=== PATIENT | male | born 1935 | race Caucasian/White ===

== ENCOUNTER 2017-07-01 15:19 | Emergency (ER) | payer MEDICARE, OTHER ==
[~2017-07-01] VITALS: Ht 175.3 cm; Wt 85.7 kg
[~2017-07-01 15:19] MED LIST: CALCIUM-MAG-ZI1 EACH PO; DYAZIDE 37.5-251 EA PO; ECOTRIN81 MG PO; FLOMAX0.4 MG PO; ICAPS AREDS FO1 EACH PO; LIPITOR20 MG PO; LISINOPRIL40 MG PO; METOPROLOL SUC100 MG PO; NITROSTAT0.4 MG SL; SERTRALINE HCL1 GM MC; VITAMIN C1000 M1 PO; VITAMIN D2000 UNI1 PO
--- NOTE | 2017-07-03 10:22 | CONS ---
[facility] [address], [place] [address] Signed DATE OF SERVICE: 07/01/17 HISTORY OF PRESENT ILLNESS: We requested to see Mr. Irizarry in the Emergency Department at the request of the emergency room provider. Mr. 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 This left him with a laceration of the tip of the index finger with a small amount of exposed bone. Orthopedic consultation was requested. PAST MEDICAL HISTORY: Unremarkable. He does not take any blood thinners and is in excellent general health. Procedure: Examination the left index finger revealed a sort of an oblique laceration at the tip of the finger with the loss of a small portion of the nail and some of the underlying nail matrix. However, there appeared to be enough of a viable flap to get primary closure. The wound was gently cleaned and irrigated with digital block of 1% lidocaine. After performing the digital block and cleaned the wound, we were able to get a primary repair, both of the soft tissue at the tip of the finger as well as the nail matrix with a 4-0 nylon. Some Neosporin ointment was applied followed by a nonstick dressing and followed by a tube gauze. We discussed the pain medication, and after discussing the potential issues with GI upset and constipation, he declined the prescription of any pain medication, thought he might do just fine at home with ibuprofen and/or Tylenol. He is discharged home at this time. I have asked him to leave the dressing on for 48 hours, at which point he can remove it and redressit with a couple of Band-Aids. I have asked him not to get it wet for the next 48 hours. After that, he can get it wet, but should not soak it until the wound is healed. He is to get followup in 7 to 10 days for suture removal. Sandeep Link MD WFB/Modl /[id number] Electronically Signed By: SANDEEP LINK MD 07/03/17 1022 PATIENT NAME: VINICIUS IRIZARRY VIDA CONSULTATION DATE OF : 33 PHYSICIAN: SANDEEP LINK MD REPORT #: [id number] REPORT IS CONFIDENTIAL AND NOT TO BE RELEASED WITHOUT AUTHORIZATION
== END 2017-07-01 18:20 | disposition home or self-care (01) ==
LOC: ED 15:19
PROC: 0HQGXZZ Repair Left Hand Skin, External Approach (ICD-10-PCS; principal; 2017-07-01)
DX: S62.631A Displaced fracture of distal phalanx of left index finger, initial encounter for closed fracture (principal); S61.311A Laceration without foreign body of left index finger with damage to nail, initial encounter; I10 Essential (primary) hypertension; I25.2 Old myocardial infarction; E78.00 Pure hypercholesterolemia, unspecified; W29.8XXA Contact with other powered hand tools and household machinery, initial encounter; Z87.891 Personal history of nicotine dependence; Z95.5 Presence of coronary angioplasty implant and graft; Z88.8 Allergy status to other drugs, medicaments and biological substances; Z79.899 Other long term (current) drug therapy; Z79.82 Long term (current) use of aspirin
CPT/HCPCS: 12001; 73140; 90471; 90715; 96365; 99283; J0690

== ENCOUNTER 2021-02-03 08:31 | Day surgery (SDC) | payer MEDICARE, BC ==
[~2021-02-03] VITALS: Ht 175.3 cm; Wt 76.4 kg
--- NOTE | 2021-02-03 10:20 | NUR ---
02/03/21 1020 Liseth Sykes 1012- PT TO PACU IN LL POSITION. EYES CLOSED. RESPONDS TO VERBAL AND TACTILE STIMULI. BREATHING EASY AND UNLABORED. SPO2 >95% ON 6 LO2 VIA NC. PT DENIES PAIN. 1019- PT AWAKENS TO VOICE AND TACTILE STIMULI. VSS. BREATHING EASY AND UNLABORED. O2 TITRATED DOWN TO 2 LO2 VIA NC. VSS.
--- NOTE | 2021-02-03 12:44 | OR ---
[facility] [address], [place] [address] Signed DATE OF OPERATION: 02/03/2021 SURGEON: Wenceslao Sandra MD PREOPERATIVE DIAGNOSES: 1. Anemia with hemoglobin 10.3 and a mean cell volume 88. 2. Guaiac-positive stool x3. 3. Personal history of colonic polyps at age 68 in 2002. 4. Diverticulosis. 5. History of hemorrhoidectomy. 6. Chronic renal insufficiency. 7. Daily aspirin. 8. Daily alcohol. POSTOPERATIVE DIAGNOSES: 1. Blister appearing lesion in posterior oropharynx. 2. Mild patchy gastroduodenitis. 3. Small hiatal hernia (42-39 cm). 4. A 3 mm hairy appendiceal/cecal polyp. 5. Mild to moderate diverticulosis. 6. Moderate internal hemorrhoids. PROCEDURES: 1. EGD with CLOtest and biopsies of the pyloric bulb, antrum and GE junction. 2. Colonoscopy with cold biopsy, application of clip and cautery. ESTIMATED BLOOD LOSS: Minimal. INDICATIONS: Vinicius is an 86-year-old gentleman, asked to see me for an upper and lower endoscopy. I have known Vinicius and his for many years. He was found to be anemic recently with a hemoglobin of 10.3 and a mean cell volume normal at 88. His guaiac stool was positive x3. We know as far back as 2002 at age of 68, he had a tubulovillous adenomatous polyp removed with Dr. Flores. Dr. Mcgraw had removed hyperplastic polyps and noted his diverticulosis in 2006. I removed hyperplastic polyps for him in 2008 and noted the diverticulosis. He had another colonoscopy with myself in 2014 and that was fine. He has no family history of colon cancer or polyps. He maintains good muscle mass. He likes to drink a little alcohol every day. He still uses aspirin on a daily basis. He also had hemorrhoid surgery in the past. In the office, I gave him a Electronically Signed By: WENCESLAO SANDRA MD 02/03/21 1244 PATIENT NAME: VINICIUS EDUARDO RAY OPERATIVE REPORT DATE OF : 33 REPORT #: [id number] PHYSICIAN: WENCESLAO SANDRA MD PCP: NIKI AMANDA MD REPORT IS CONFIDENTIAL AND NOT TO BE RELEASED WITHOUT AUTHORIZATION [facility] [address] [place] [id number] Signed pamphlet on both upper and lower endoscopy. He understands the nature of the two tests along with the risks including, but not limited to gas bloating, crampy abdominal pain, bleeding, perforation requiring surgery, and missed diagnosis. Also because of his advanced age and advanced medical issues, we asked an anesthesia provider to help with increased monitoring and sedation with propofol. He had expressed understanding and wished to proceed. PROCEDURE NOTE: Vinicius was taken into our endoscopy suite and placed in the supine semi-recumbent position. He was given IV sedation with propofol per our nurse stereo plotter operator. A bite block was utilized for the case. The adult gastroscope was introduced and advanced out into the third portion of the duodenum under direct visualization of camera without difficulty. The duodenum was unremarkable. He had very mild patchy inflammation in the pyloric bulb and in the distal half of the stomach. We went ahead and took a biopsy of the pyloric bulb as well as the antrum for pathologic review. An additional biopsy came out of the antrum for CLOtest. Upon retroflexion of scope, I could see just a very small hiatal hernia. It measured out roughly from 42 back to 39 cm. Very minimal disruption to the Z-line. We went and took a biopsy along the edge of the Z-line. No Aldana's mucosa. No distal esophagitis. The middle and upper esophagus were unremarkable. After this, the gastroscope had been removed. Just to the side of his epiglottis in the posterior oropharynx, he has a small 3 or 4 mm blood blister type appearing lesion maybe his Ear, Nose and Throat surgeon could look at in the office. Overall, Vinicius tolerated the upper endoscopy quite well. Vinicius was then rotated into the left lateral decubitus position. He was maintained on IV sedation with the propofol. A digital rectal exam was performed and this was unremarkable. The prostate was not overly enlarged, but it is fairly indurated. He has may be a nodule on the left side of the prostate somewhat inferiorly. After this, the adult colonoscope was introduced and advanced all around into the cecum under direct visualization of camera without difficulty. His prep was good. We could easily see the appendiceal orifice and the ileocecal valve. We took pictures throughout for photodocumentation. He had just a tiny 3 mm polypoid lesion next to the appendiceal orifice. We removed it with cold biopsy forceps. It bled a bit and formed a small hematoma. We went and placed a clip and cauterized it gently and that controlled the bleeding. After this, the scope was then slowly withdrawn. We can see he does have diverticulosis in the left colon. It is mild to moderate in size and number. The rectum was unremarkable. Upon retroflexion of scope, he does have moderate internal hemorrhoids. That may explain his guaiac-positive stool. After this, the gas was suctioned out and colonoscope removed. Vinicius tolerated the procedure quite well. RECOMMENDATIONS: I will see Vinicius back in my office in 7 to 14 days to review his results. He might Electronically Signed By: WENCESLAO SANDRA MD 02/03/21 1244 PATIENT NAME: VINICIUS EDUARDO OPERATIVE REPORT DATE OF : 34 REPORT #: [id number] PHYSICIAN: WENCESLAO SANDRA MD PCP: NIKI AMANDA MD REPORT IS CONFIDENTIAL AND NOT TO BE RELEASED WITHOUT AUTHORIZATION [facility] [address], [place] [address] Signed have his Ear, Nose, and Throat surgeon look at this lesion in the back of his throat. He might follow up the prostate exam with his primary care provider. Wenceslao Sandra MD ALB/MODL /[id number] cc: MD Wenceslao Saleh MD Copies: NIKI AMANDA DMD, ANDREW L MD ~ Electronically Signed By: WENCESLAO SANDRA MD 02/03/21 1244 PATIENT NAME: VINICIUS EDUARDO OPERATIVE REPORT DATE OF : 34 REPORT #: [id number] PHYSICIAN: WENCESLAO SANDRA MD PCP: NIKI AMANDA MD REPORT IS CONFIDENTIAL AND NOT TO BE RELEASED WITHOUT AUTHORIZATION
--- NOTE | 2021-02-05 13:52 | PATH ---
[facility] [address] [place], [place] [address] Signed SPECIMEN(S): A DUODENAL BULB BIOPSY SPECIMEN(S): B ANTRUM/PYLORUS BIOPSY SPECIMEN(S): C GE JUNCTION SPECIMEN(S): D CECUM POLYP SPECIMEN SOURCE: A. DUODENAL BULB BIOPSY B. ANTRUM/PYLORUS BIOPSY C. GE JUNCTION D. CECUM POLYP CLINICAL HISTORY: Esophagogastroduodenoscopy, colonoscopy. Guaiac positive stool, history of polyps and diverticulosis. Postop: Cecal polyp, internal hemorrhoids, diverticulosis, mild gastritis, small hiatal hernia. MICROSCOPIC DESCRIPTION: Histologic sections of all submitted blocks are examined by light microscopy. These findings, together with the gross examination, support the pathologic diagnosis. FINAL PATHOLOGIC DIAGNOSIS: A. Duodenum, bulb, biopsy: - Duodenal mucosa with mild peptic injury. B. Stomach, antrum/pylorus, biopsy: - Gastric antral mucosa with no significant pathologic changes. - Negative for Helicobacter pylori with HE stains. C. Gastroesophageal junction, biopsy: - Squamoglandular mucosa with reactive epithelial changes; negative for intestinal metaplasia. D. Cecum, polypectomy: - Colonic mucosa with no significant pathologic changes. BRP:cml:C2NR GROSS DESCRIPTION: Four specimens are received in four containers labeled with "CM." A. The specimen, labeled "CM," and designated on the requisition "duodenum bulb biopsy," is received in formalin and consists of one fragment of pink-orozco tissue (0.4 x 0.2 x 0.2 cm). The specimen is submitted entirely in cassette (A1). B. The specimen, labeled "CM," and designated on the requisition "antrum/pylorus biopsy," is received in formalin and consists of one fragment PATIENT NAME: VINICIUS EDUARDO PATHOLOGY DATE OF : 33 REPORT #: [id number] PHYSICIAN: ILEANA PATHOLOGY PCP: NIKI AMANDA MD REPORT IS CONFIDENTIAL AND NOT TO BE RELEASED WITHOUT AUTHORIZATION [facility] [address] [place], [place] [address] Signed of pink-orozco tissue (0.3 x 0.3 x 0.2 cm). The specimen is submitted entirely in cassette (B1). C. The specimen, labeled "CM," and designated on the requisition "GE junction biopsy," is received in formalin and consists of one fragment of pink-orozco tissue (0.3 x 0.2 x 0.2 cm). The specimen is submitted entirely in cassette (C1). D. The specimen, labeled "CM," and designated on the requisition "cecum polypectomy," is received in formalin and consists of one fragment of pink-orozco tissue (0.4 x 0.3 x 0.2 cm). The specimen is submitted entirely in cassette (D1). AC (under the direct supervision of a pathologist) The Gross Description was prepared using a voice recognition system. The report was reviewed for accuracy; however, sound-alike word errors, addition and/or deletions may occur. If there is any question about this report, please contact Client Services. PERFORMING LABORATORY: The technical component was performed by [employer], [address] [place] [address] (Shopping Centre Manager: Ana Laura Frost MD; CLIA# [id number]). Professional interpretation was performed by [employer], [facility], [address] [address] (CLIA# [id number]). Diagnostician: Kennedy Burton MD Pathologist Electronically Signed 02/05/2021 Copies: ~ PATIENT NAME: VINICIUS EDUARDO RAY PATHOLOGY DATE OF : 34 REPORT #: [id number] PHYSICIAN: ILEANA TAVAREZ PCP: NIKI AMANDA MD REPORT IS CONFIDENTIAL AND NOT TO BE RELEASED WITHOUT AUTHORIZATION
== END 2021-02-03 10:55 | disposition home or self-care (01) ==
LOC: OPS 08:31 → DS 08:35 → OPS 10:55
PROVIDERS: ATTEND Colon & Rectal Surgery
PROC: 0DB68ZZ Excision of Stomach, Via Natural or Artificial Opening Endoscopic (ICD-10-PCS; principal; 2021-02-03 08:15)
PROC: 0DBE8ZZ Excision of Large Intestine, Via Natural or Artificial Opening Endoscopic (ICD-10-PCS; 2021-02-03 08:15)
DX: D64.9 Anemia, unspecified (principal); R19.5 Other fecal abnormalities; K57.30 Diverticulosis of large intestine without perforation or abscess without bleeding; K29.90 Gastroduodenitis, unspecified, without bleeding; K44.9 Diaphragmatic hernia without obstruction or gangrene; K64.8 Other hemorrhoids; K63.5 Polyp of colon; K31.89 Other diseases of stomach and duodenum; I12.9 Hypertensive chronic kidney disease with stage 1 through stage 4 chronic kidney disease, or unspecified chronic kidney disease; N18.9 Chronic kidney disease, unspecified; I25.2 Old myocardial infarction; I25.10 Atherosclerotic heart disease of native coronary artery without angina pectoris; M47.9 Spondylosis, unspecified; E78.00 Pure hypercholesterolemia, unspecified; E55.9 Vitamin D deficiency, unspecified; N40.1 Benign prostatic hyperplasia with lower urinary tract symptoms; F10.20 Alcohol dependence, uncomplicated; G47.33 Obstructive sleep apnea (adult) (pediatric); F17.220 Nicotine dependence, chewing tobacco, uncomplicated; Z86.010 Personal history of colon polyps; Z79.82 Long term (current) use of aspirin; Z87.19 Personal history of other diseases of the digestive system; Z95.5 Presence of coronary angioplasty implant and graft; Z85.828 Personal history of other malignant neoplasm of skin; Z88.8 Allergy status to other drugs, medicaments and biological substances; Z98.890 Other specified postprocedural states
CPT/HCPCS: 86677; J2704; J7121

== ENCOUNTER 2021-05-02 16:07 | Emergency (ER) | payer MEDICARE, BC ==
[~2021-05-02] VITALS: Ht 175.3 cm; Wt 76.2 kg
--- OUTSIDE RECORDS SUMMARY | 2021-05-02 16:10 | XMS ---
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 Vivian has no Care Guidelines for this patient. Love VISIT COUNT (12 MO.) 1 [facility] [address] [facility] TOTAL 2 NOTE: Visits indicate total known visits. ED/UCC VISIT TRACKING (12 MO.) 05/02/2021 16:[address] [facility] [place] TYPE: Emergency COMPLAINT: - TEMP POST OP 04/30/2021 18:35 [facility] TYPE: Emergency DIAGNOSES: 15433. Kidney issue 19953. Minor contusion of unspecified kidney, initial encounter INPATIENT VISIT TRACKING (12 MO.) No inpatient visits to display in this time frame [email or web address]
== END 2021-05-02 19:33 | disposition home or self-care (01) ==
LOC: ED 16:07
DX: J98.11 Atelectasis (principal); R50.9 Fever, unspecified; D64.9 Anemia, unspecified; I25.2 Old myocardial infarction; I10 Essential (primary) hypertension; E78.00 Pure hypercholesterolemia, unspecified; Z87.891 Personal history of nicotine dependence; Z88.8 Allergy status to other drugs, medicaments and biological substances; Z79.899 Other long term (current) drug therapy; Z79.82 Long term (current) use of aspirin
CPT/HCPCS: 71045; 80053; 81001; 85025; 99284-25

== ENCOUNTER 2021-08-29 11:10 | Emergency (ER) | payer MEDICARE, BC ==
[~2021-08-29] VITALS: Ht 175.3 cm; Wt 71.5 kg
--- OUTSIDE RECORDS SUMMARY | 2021-08-29 11:12 | XMS ---
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 E.DMitchell VISIT COUNT (12 MO.) 1 [facility] [place] 1 [facility] 2 [facility] TOTAL 4 NOTE: Visits indicate total known visits. ED/UCC VISIT TRACKING (12 MO.) 08/29/2021 11:10 [facility] TYPE: Emergency COMPLAINT: - BACK PAIN 07/15/2021 09:39 [facility] [place] TYPE: Emergency DIAGNOSES: 32551. GLF R HIP PAIN 29930. Fracture of unspecified part of neck of right femur, initial encounter for closed fracture 05/02/2021 16:08 [facility] [place] TYPE: Emergency COMPLAINT: - FEVER DIAGNOSES: - Anemia, unspecified - Old myocardial infarction - Allergy status to other drugs, medicaments and biological substances - Atelectasis - Other fpc (current) drug therapy - Essential (primary) hypertension - Personal history of nicotine dependence - rodent exterminator (current) use of aspirin - Pure hypercholesterolemia, unspecified - Fever, unspecified 04/30/2021 18:35 [facility] TYPE: Emergency DIAGNOSES: 16700. Kidney issue . Minor contusion of unspecified kidney, initial encounter INPATIENT VISIT TRACKING (12 MO.) [facility]21 09[facility] [place] [facility] DIAGNOSES: . Fracture of unspecified part of neck of right femur, initial encounter for closed fracture 06/22/2021 10:43 [facility] TYPE: Urology DIAGNOSES: . Chronic kidney disease, unspecified [email or web address]
[2021-08-29] MEDS ORDERED: TAMSULOSIN HCL0.4 MG PO (11:21)
[2021-08-29] MEDS ORDERED: AMLODIPINE BESY10 MG PO (11:22)
[2021-08-29] MEDS ORDERED: SERTRALINE HCL50 MG PO (11:22)
[2021-08-29] MEDS ORDERED: OXYCODONE HCL5 MG PO (11:22)
[2021-08-29] MEDS ORDERED: TIZANIDINE HCL4 M1 (11:23)
[2021-08-29] MEDS ORDERED: TIZANIDINE HCL4 M1 PO (11:23)
[2021-08-29] MEDS ORDERED: ULTRAM50 MG PO (11:24)
[2021-08-29] MEDS ORDERED: LIDODERM1 EACH TOP (12:40)
== END 2021-08-29 13:48 | disposition home or self-care (01) ==
LOC: ED 11:10
DX: S33.5XXA Sprain of ligaments of lumbar spine, initial encounter (principal); I25.2 Old myocardial infarction; I10 Essential (primary) hypertension; E78.00 Pure hypercholesterolemia, unspecified; W19.XXXA Unspecified fall, initial encounter; Z87.891 Personal history of nicotine dependence; Z88.8 Allergy status to other drugs, medicaments and biological substances; Z79.82 Long term (current) use of aspirin; Z79.899 Other long term (current) drug therapy
CPT/HCPCS: 72100; 99283-25; A9270

== ENCOUNTER 2021-09-30 06:48 | Inpatient (IN) | payer MEDICARE, BC ==
[~2021-09-30] VITALS: Ht 175.3 cm; Wt 71.2 kg
[~2021-09-30 06:48] MED LIST changes: +AMLODIPINE BESY10 MG PO; +LIDODERM1 EACH TOP; +OXYCODONE HCL5 MG PO; +SERTRALINE HCL50 MG PO; +TAMSULOSIN HCL0.4 MG PO; +TIZANIDINE HCL4 M1; +TIZANIDINE HCL4 M1 PO; +ULTRAM50 MG PO
--- OUTSIDE RECORDS SUMMARY | 2021-09-30 06:50 | XMS ---
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 07/15/2021-Current PHONE: [phone] Vivian has no Care Guidelines for this patient. E.DMitchell VISIT COUNT (12 MO.) 1 [facility] [place] 1 [facility] 3 [facility] TOTAL 5 NOTE: Visits indicate total known visits. 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 GLF R HIP PAIN 67936. Fracture of unspecified part of neck of right femur, initial encounter for closed fracture 05/02/2021 16:08 [facility] [place] TYPE: Emergency COMPLAINT: - FEVER DIAGNOSES: - Anemia, unspecified - Old myocardial infarction - Allergy status to other drugs, medicaments and biological substances - Atelectasis - Other rodent exterminator (current) drug therapy - Essential (primary) hypertension - Personal history of nicotine dependence - correction (current) use of aspirin - Pure hypercholesterolemia, unspecified - Fever, unspecified 04/30/2021 18:35 [facility] TYPE: Emergency DIAGNOSES: 67721. Kidney issue 79608. Minor contusion of unspecified kidney, initial encounter INPATIENT VISIT TRACKING (12 MO.) 07/15/2021 09:39 [facility] [place] TYPE: General Medicine DIAGNOSES: 21773. Fracture of unspecified part of neck of right femur, initial encounter for closed fracture 06/22/2021 10:43 [facility] TYPE: Urology DIAGNOSES: 73140. Chronic kidney disease, unspecified [email or web address]
[2021-09-30] MEDS ORDERED: LISINOPRIL40 MG PO (07:52)
[2021-09-30] MEDS ORDERED: FENTANYL1 EAC4 TD (08:23)
[2021-09-30] MEDS ORDERED: TRIAMTERENE-HC1 EAC1 PO (08:24)
[2021-09-30] MEDS ORDERED: GABAPENTIN300 MG PO (08:25)
--- NOTE | 2021-09-30 13:31 | NUR ---
REPORT RECEIVED FROM PHILL TSANG. AWAITING PTS ARRIVAL TO MED/SURG
--- NOTE | 2021-09-30 14:32 | NUR ---
PT ARRIVED FROM ER. PT TRANSFERED TO BED WITH YESI ORTIZ AND 3 PERSON ASSIST. PT ALERT, ORIENTED TO ALL BUT MONTH AND YEAR STATING IT IS "AUGUST" AND "" FOR THE YEAR. PT IS ABLE TO STATES HE IS IN THE HOSPITAL "BECAUSE I FELL DOWN" AND IS ABLE TO IDENTIFY HIS BY NAME. PT DENIES NAUSEA. PT DENEIS PAIN BUT WINCES AND CRIES OUT WHEN LEFT ARM IS MOVED. STATES PT HAS BEEN "HOLLERING AT ME...WAFFELS! WAFFELS!" WHILE AT HOME. PTS STATES PT HAS HAD TROUBEL WITH INCONTANCE AT HOME WELL RECENT FALLS. IV FLUIDS STARTED. PT REPOSIIONTED IN BED. WARM BLANKETS PROVIDED. ADDITIONAL IV STARTED WITH BLOOD DRAW FOR TYPE AND CROSS, PER PROTOCOL. BRISK BLOOD RETURN NOTED WITH IV START, IV SALINE LOCKED AT THIS TIME. PT RESTING IN BED WITH AT BEDSIDE. DINNER ORDER PLACED. CALL LIGHT WITHIN REACH. BED RAILS UP. AT BEDSIDE.
--- NOTE | 2021-09-30 14:59 | NUR ---
THIS RN TO ROOM TO CHECK ON PT. PT RESTING WITH EYES CLOSED. RESPRATIONS EVEN AND UNALABORED. ASSESSMENT COMPLETED. PT AWAKENS TO LIGHT TOUCH, DOZES OFF BETWEEN CARES. PT REMAINS ORIENTED TO ALL BUT DATE AND MONTH, MAKES OCCATIONAL OUT OF PLACE STATMENTS SUCH "SO WE JUST DON'T GET ALONG WITH BEER TONIGHT." PT CONTINUES TO DENY PAIN, CONTINUES TO FLINCH OR CRY OUT WHEN LEFT ARM IS TOUCHED. ONLY CONTROLED MOVEMENT NOTED IN LEFT ARM. GRIB STRENGTHS EQUAL BILATERALLY. PT IS ABLE TO LIFT LEGS OF THE BED WELL BED KNEES AND USE LEGS TO LIFT HIPS OFF THE BED. MULTIPLE RECENT FALLS. NO FENTANYL PATCHES NOTED OVER PTS BODY. PTS STATES "I TOOK THE OTHER PATCH OFF." +3 PITTING EDEMA NOTED TO BILATERAL LOWER EXTREMITIES. LEFT ARM GENERALIZED EDEMA NOTED WELL. DR FOWLER CONSUTLED REGARDING LEFT ARM, NO NEW ORDERS AT THIS TIME. LEFT ARM SUPPORTED ON A PILLOW. SMALL ABRASION NOTED TO MID CLAVICULAR STERNAL LINE, REPORTS THIS IS FROM A FALL, SKIN OTHERWISE INTACT AT THIS TIME. PT DOSES OFF DURING CARES. PTS LEAVING FOR THE NIGHT. NO ADDITIONAL REQUSTS OR COMPLAINTS. PT ALLOWED TO REST. CALL LIGHT WITHIN REACH. AWAITNG TYEP AND CROSS FOR BLOOD TRANSFUSION UNITS.
--- NOTE | 2021-09-30 15:45 | NUR ---
Spoke with pt and Katt earlier. 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 Pt had nephrectomy in Jul 10 and fell approx 2 weeks later and fractured his hip. Pt has been declining since nephrectomy. is ill also. She would like pt place d in an Assisted Living as he was in a SNF following hip fx. She was not happy with his care. is considering Hospice but also further radiation if pt can improve. Either way would like placement as she cannot provide care.
--- NOTE | 2021-09-30 15:45 | NUR ---
LAB CALLED TO STATE BLOOD IS READY FOR TRANSFUSION. [facility] FROM [facility] BY PHILL DE ANDA. VARIFICATION AT BEDSIDE PERFORMED BY THIS RN AND PHILL DE ANDA PER PROTOCOL. PT NOTED TO BE 90% ON ROOM AIR, PT PLACED BACK ON 2L O2 BY WV WHICH RAISES OXGYEN SATURATION TO 97%. [facility] TRANSFUSION STARTED, INFUSING THROUGH NEW 20G IV PLACED PREVIOUSLY IN RIGHT FORARM. IV ASSESSED, WNL, NO S/S OF PHLEBITIS NOTED. TRANSFUSION STARTED AT 120ML FOR 30M AND FISRT 15 MINUTES OF INFUSION. THIS RN REMAINS AT BEDSIDE DURING FIRST 15 MINUTES OF INFUSION. NO S/S OF TRANSFUSION REACTION NOTED. RATE INCREASED TO 150ML/HR FOR REMAINDER OF INFUSION. PT RESTING IN BED WITH EYES CLOSED. RESPIRATIONS EVEN AND UNLABORED. BED RAILS UP. BED ALARM ON. CALL LIGHT WITHIN REACH.
--- NOTE | 2021-09-30 16:45 | NUR ---
X-RAY TO ROOM, DEFORMITIES NOTED. DR. FOWLER UPDATED AND PLACES CALL TO DR. FLOOD. NO NEW ORDERS AT THIS TIME. SLING TO BE CONSIDERED LATER. PT REPOSITIONED TO RIGHT SIDE. ONCE REPOSITIONED PT DENIES PAIN AND NASUEA. MOVEMENT MINIMIZED TO MINIMZE PAIN. LEFT ARM SUPPORTED WITH PILLOWS. HEAD OF BED ELEAVED TO 45 DEGREES. BED ALARM ON.
--- NOTE | 2021-09-30 17:40 | NUR ---
THIS RN TO ROOM TO CHECK ON PT. STUDENT RN ASKED TO ASSIST WITH PT EATING DINNER, PT ASSISTED AND TOLERATES 50% OF DINNER INTAKE. PT REPOSITIONED TO SITTING, SUPINE, ON BACK WIT HEAD OF BED ELEVATED TO 45 DEGREES AT THIS TIME. VERBAL ORDERS FOR CUFF AND COLLAR PLACEMENT FROM DR. FOWLER. ORDER PLACED, CUFF AND COLLAR PLACED PER PACKAGE INSERT INSTUCTIONS. 2 FINGERS PLACED UNDER CUFF, STRONG PULSES FELT. PRODUCT EXAMINER STRENGTH STRONG. PT REPORTS NORMAL SENSATION. PT DENIES PAIN " LONG YOU DON'T MOVE IT." PT REPORTS CUFF AND COLLAR FEELS COMFORTABLE. PT WATCHING TV. NO ADDITIONAL REQUESTS OR COMPLAINTS. CALL LIGHT WITHIN REACH. BED RAILS UP. BED ALARM ON.
--- NOTE | 2021-09-30 18:05 | NUR ---
PUMP ALARMING, [facility] INFUSION COMPLETE. LINE FLUSHED AND SALINE LOCKED PER PROTOCOL. VITALS SIGNS STABLE. PT REMAINS ON 2L O2 BY NC. NO ADDITIONAL REQUESTS OR COMPLAINTS. CALL LIGHT WITHIN REACH. BED RAILS UP.
--- NOTE | 2021-09-30 18:35 | NUR ---
THIS RN TO ROOM TO CHECK ON PT. 30MINUTE POST INFUSION VITAL SIGNS TAKEN. PT RESTING WITH EYES CLOSED, RESPIRATIONS EVEN AND UNALBORED. BED RAILS UP. CALL LIGHT WITHIN REACH. PT EASILY VIEWED FROM NURSES STATION. PT ALLOWED TO REST.
--- NOTE | 2021-09-30 18:55 | NUR ---
PT ARRIVED FROM ER THIS SHFIT ADMITTED FOR [place]. PT REMAINS ON BED REST THIS SHIFT, ASSISTED WITH REPOSITIONING. PT TOELRATING REGULAR DIET WITH MODERATE INTAKE. PT ORIENTED TO ALL BUT DATE/MONTH/YEAR ALTHOUGH CONFUSED AT TIMES AND MAKING STATEMENTS THAT DO NOT ALWAYS FIT WITH THE SITUTATION. PT REMAINS ON 2L O2 BY NC TO MAINTAIN OXYGEN SATURATIONS ABOVE 94%. MULTIPLE RECENT FALLS AT HOME. NEW L HUMERUS FX NOTED, CUFF AND COLLAR IN PLACE. PT DENIES PAIN BUT FOR WHEN ARM IS MOVED. 1 UNIT [facility] GIVEN THIS SHIFT. PT ARRIVED WITH MULTIPLE FENTANYL PATCHES IN PLACE, NO PATCHES FOUND WITH THIS RN'S ASSESSMENT. +3 PITTING EDEMA NOTED TO BLE. LEFT ARM ALSO SWOLLEN WITH MINIMAL MOVEMENT. PT VOIDS IN URINAL, PTS STATES PT IS OCCATIONAL INCONTINANT. PT DOES NOT USE CALL LIGHT. ROOM NEAR NURSES STATION. BED ALARM FOR SAFETY.
--- NOTE | 2021-09-30 19:25 | NUR ---
SHIFT REPORT RECEIVED FROM [facility] PHILL TORRES AT BEDSIDE. pt AWAKE AND RESTING IN BED. IV LFUIDS INFUSING DIRECTED, IV SITE WNL. GENERALIZED EDEMA NOTED TO LUE, SHOULDER CUFF AND SLING IN PLACE. pt REPOSITIONED BY PHILL TORRES, pt CURRENTLY DENIES PAIN. 2LNC IN PLACE, RR EVEN AND UNLABORED. BLE EDEMA ALSO NOTED, HELL PROTECTORS IN PLACE. WILL CONTINUE TO MONITOR. HOB ELEVATED, pt APPEARS RELAXED AND COMFORTABLE AT THIS TIME. CALL LIGHT IN REACH AND BED ALARM ON FOR SAFETY. URINAL REMAINS AT BEDSIDE.
--- NOTE | 2021-09-30 21:00 | NUR ---
pt FOUND IN BED WITH NC OFF OF FACE. 2LNC PUT BACK IN PLACE AND SPO2 CHECKED WITH RESULT OF 92%. NO ADDITIONAL NEEDS, HOB REMAINS ELEVATED WITH LEFT SHOULDER CUFF AND SLING IN PLACE. BED ALARM REMAINS ON FOR SAFETY. CALL LIGHT IN REACH AND pt IN VIEW OF RN STATION.
--- NOTE | 2021-09-30 22:00 | NUR ---
IN TO GET VITALS, EMPTIED URNIAL
--- NOTE | 2021-09-30 22:15 | NUR ---
RETURNED TO PT RM WITH ASSISTANCE FROM AN RN, 2PA PIVOT TO CHAIR, COMPLETE BED CHANGE FOR PT, PT REMAINING IN CHAIR PER REQUEST, ITEMS IN REACH AND ICE WATER TOPPED OFF, NO FURTHER NEEDS
--- NOTE | 2021-09-30 22:30 | NUR ---
ASSESSMENT COMPLETE, NO SCHEDULED MEDS. IV FLUIDS INFUSING AT 100MLS/HR, IV SITE WNL. pt A/O TO SELF, PLACE, AND DATE. IMPULSIVE AT TIMES, BED ALARM ON FOR SAFETY. LEFT SHOULDER CUFF AND SLING REMAIN ON, GENERALIZED EDEMA REMAINS NOTED, CMS INTACT. pt DENIES PAIN AND NAUSEA, VSS, 2LNC IN PLACE. SPO2 WNL. pt DENIES ADDITIONAL NEEDS. CALL LIGHT IN REACH.
--- NOTE | 2021-09-30 23:20 | NUR ---
ASSISTED PT BACK TO BED FROM CHAIR. HE DENIES FURTHER NEEDS AT THIS TIME. CALL LIGHT IS CLOSE. BED ALARM IS ON.
--- NOTE | 2021-10-01 01:04 | NUR ---
pt RESTING IN BED, EYES CLOSED. RR EVEN AND UNLABORED. 2LNC REMAIN IN PLACE, HOB ELEVATED. BED ALARM REMAINS IN PLACE, CALL LIGHT IN REACH AND pt IN VIEW OF RN STATION.
--- NOTE | 2021-10-01 01:31 | NUR ---
pt REPOSITIONED IN BED WITH HELP FROM TRIMMER CLIMBER ANGELICA, HOB REMAINS ELEVATED TO 45 DEGREES. LEFT SHOULDER CUFF AND SLING REMAINS IN PLACE. PILLOW PLACED UNDER LEFT HIP AND LUE, WRAPPED BLANKET PLACED UNDER SLING TO ASSIST IN HOLDING LUE TO RELIEVE PRESSURE FROM SLING. BLE ELEVATED WITH PILLOW. STRONG RADIAL PULSE TO LUE, SKIN WARM TO THE TOUCH AND PINK/DRY IN APPEARANCE. NO CHANGE IN EDEMA NOTED, WILL CONTINUE TO MONITOR. BED ALARM ON FOR SAFETY. WHEN ASKED OF pt IS IN PAIN, pt STATES, "NO, I'M FINE". pt DENIES NEED FOR PAIN MEDICATION. CALL LIGHT IN REACH AND pt IN VIEW OF RN STATION.
--- NOTE | 2021-10-01 04:00 | NUR ---
ASSESSMENT COMPLETE, NO ACUTE CHANGES. WITH HELP FROM CONNER FORTUNE, pt BOOSTED IN BED AND REPOSITIONED, BILATERAL HIPS FLOATED AND PILLOW UNDER BLE AND UNDER LUE. STRONG RADIAL PULSE IN LUE, CMS INTACT. CAP REFILL WNL AND SKIN WARM AND DRY TO THE TOUCH. pt A/O TO SELF, PLACE. REORIENTED TO DATE. PRN PAIN MEDICATION GIVEN FOR 5/10 PAIN IN LUE. NO FENTANYL PATCH FOUND WITH REPOSITIONING/ASSESSMENT. EDEMA IMPROVING IN BLE, CURRENTLY +2. NO FURTHER NEEDS, CALL LIGHT IN REACH AND BED ALRM ON. HOB REMAINS ELEVATED TO 45 DEGREES.
--- NOTE | 2021-10-01 06:22 | NUR ---
VS, I/OS DONE, PT USED URINAL IND.. PT BP IS ELEVATED, RN NOTIFIED, PT HAS PAIN LEVEL OF 8, PT REPOSITIONED TO HOB, PILLOW PULLED FROM UNDER RIGHT HIP. PT LYING ON RIGHT WITH PILLOW SUPPORT UNDER LEFT SIDE, PILLOW UNDER KNEES, HEEL PROTECTORS APPLIED. CALL LIGHT WITHIN REACH, HOB AT 45 DEG. BED ALARM ON. NO FURTHER ASSITANCE NEEDED AT THIS TIME.
--- NOTE | 2021-10-01 06:33 | NUR ---
prn pain medication given, see emar for 8/10 pain after repositioning in bed. increased generalized edema noted in left hand, elevated with use of pillow. strong radial pulse noted, will continue to monitor. lue shoulder sling remains in place. call light in reach and bed alarm on for safety.
--- NOTE | 2021-10-01 07:22 | NUR ---
REPORT RECEIVED FROM PHILL STOVALL. PT RESTING IN BED WITH EYES CLOSED. RESPIRATIONS EVEN AND UNLABORED WITH RR OF 12. CUFF AND COLLAR IN PLACE. BED RAILS UP. BED ALARM ON. CALL LIGHT WITHIN REACH. PT ALLOWED TO REST.
--- NOTE | 2021-10-01 07:59 | NUR ---
THIS RN TO ROOM TO CHECK ON PT. PT CONTINUES RESTING WITH EYES CLOSED. HEAD OF BED ELEVATED TO 45 DEGREES. CUFF AND COLLAR IN PLACE. RESPIRATIONS EVEN AND UNLABORED. PT ALLOWED TO REST. CALL LIGHT WITHIN REACH. BED RAILS UP. BED ALARM ON.
--- NOTE | 2021-10-01 08:29 | NUR ---
MORNING ASSESSMENT AND MEDICATIONS DUE. THIS RN TO ROOM. PT CONTINUES RESTRING WITH EYES CLOSED, RR = 12. MILD SNORNING NOTED AT TIMES. PT AWAKENS TO VOICE AND LIGHT TOUCH. PT TAKES TIME TO WAKE UP AND LOOK ARROUND. PT ORIENTED TO SELF, PT STATES HE IS IN "[place]" BUT IS UNABLE TO REPORT HE IS IN THE HOSPITAL. PT ALSO UNABLE TO STATE WHY HE IS IN THE HOSPITAL. PT REPROTS "I'M HAVING SURGERY OR SOMETHING PROBABLY." PT FOLLOWS DIRECTIONS INTERMITTANTLY. PAPER CUTTER OPERATOR STRENGTH WEAK BILATERALLY THIS MORNING. PT ONLY ABLE TO DO GROSS MOVEMENTS WITH LEFT ARM. STRONG PULSES NOTED IN LEFT ARM. GENERALIZED EDEMA CONTINUES TO LEFT ARM AND HAND. CUFF AND COLLAR SLING IN PLACE. LUNG SOUNDS CLEAR. PT REMAINS ON 2L O2 BY NC TO MAINTAIN OXYGEN SATURATIONS ABOVE 92%. BLE REMAIN PAIL IN APEARANCE. EDMEA IMPROVED, NOW +1 TO BLE, AND +2 TO BILATERAL FEET. GENERALIZED DEPENDANT EDEMA NOTED TO LOWER BACK. 2 PERSON ASSIST UP TO SIT ON EDGE OF BED, PT VOIDS 150ML CLEAR YELLOW URINE INTO URINAL. 2 PERSON ASSIST UP TO STAND. PT ABLE TO TAKE A FEW STEPS AND TRANSFER TO CHAIR. LINENS CHANGED. PT ASSISTED WITH EATING BREAKFAST BY STUDENT NURSE GREGG. PT TOELRATES ~20% OF BREAKFAST. PT REPORTS MINIMAL APPITITE. PT DENIES NAUSEA. PT REMAINS UP TO CHAIR. CHAIR ALARM IN PLACE. NO ADDITIONAL REQUESTS OR CONCERNS. CALL LIGHT WITHIN REACH.
--- NOTE | 2021-10-01 09:00 | NUR ---
Spoke with Todd, he is disoriented at times but does recognize me. Co of arm pain. Attempted to call Summer at [facility] as would like pt to go to [facility] following discharge. Unable to contact, message left requesting return call.
--- NOTE | 2021-10-01 09:47 | NUR ---
THIS RN TO ROOM TO CHECK ON PT. MAGGI, PHYSICAL THERAPY TO BEDSIDE TO WORK WITH PT. PT REMAINS UP TO CHAIR. PT ABLE TO STAND WITH 1 PERSON ASSIST FROM PHYSICAL THERAPY. VITALS SIGNS TAKEN BY STUDENT. PT DENIES PAIN AND NAUSEA AT THIS TIME. CUFF AND COLLAR REMAIN IN PLACE, CMS INTACT. PT UP TO TAMBULATE WITH WHEELCHAIR SUPPORT FOR REST BREAKST. 2L O2 BY NC REMAIN IN PLACE. STUDENT NURSE ASSISTING PHYSICAL THERAPY. IV SALINE LOCKED WHILE PT IS AMBULATING. NO ADDITIONAL REQUESTS OR COMPLAINTS.
--- NOTE | 2021-10-01 10:22 | NUR ---
PT FINISHED WITH PHYSICAL THERAPY. UP TO CHAIR. CHAIR ALARM PLACED. PT REPROTS 6/10 SHARP PAIN IN LEFT SHOULDER. SEE MAR FOR MEDICATION GIVEN. IV ASSESSED, WNL, NO S/S OF PHLEBITIS NOTED. IV FLUIDS RESTARTED. PT DENIES ADDITIONAL REQUESTS OR COMPLAINTS. CASE MANAGEMENT TO BEDSIDE TO VISIT WITH PT. PT NOW ORIENTED TO PLACE, EVENTS, SELF AND FOLLOWING DIRECTIONS. PT REMAINS DISORIENTE TO DATE/TIME/MONTH. CALL LIGHT WITHIN REACH. CHAIR ALARM ON.
--- NOTE | 2021-10-01 10:57 | NUR ---
THIS RN TO ROOM TO CHECK ON PT. PT RESTING WITH EYES CLOSED, RESPIRATIONS EVEN AND UNALBORED RR = 12. CALL LIGHT WITHIN REACH. CHAIR ALARM ON. PTS ARRIVED TO UNIT, UPDATED ON PT STATUS AND PLAN OF CARE, STATES HER QUESTIONS HAVE BEEN ANSWERED. OCCUPATIONAL THERAPIST TO BEDSIDE TO WORK WITH PT. PHARMACIST TO BEDSIDE TO REVIEW MEDICATION LIST WITH PTS . NO ADDITIONAL REQUESTS OR COMPLAINTS. PT REPORTS "MILD" PAIN IN LEFT SHOULDER REPROTING 2-01/27. PT DENIES NEED FOR ADDITIONAL PAIN MEDICAITON. NO ADDITIONAL REQUESTS OR COMPLAINTS. CALL LIGHT WITHIN REACH. CHAIR ALARM ON.
--- NOTE | 2021-10-01 11:15 | NUR ---
MED REC COMPLETED BY PHARMACY
--- NOTE | 2021-10-01 11:55 | NUR ---
PT ALERT AND RESPONSIVE SITTING IN CHAIR LOOKING OUT THE WINDOW. PT'S PRESENT, GAVE ENCOURAGEMENET AND BLESSING. WILL FOLLOW
--- NOTE | 2021-10-01 12:25 | NUR ---
THIS RN TO ROOM TO CHECK ON PT. STUDENT NURSE AT BEDSIDE FOR HEAD TO TOE EVALUATION WITH HIS INSTRUCTOR. PT DENIES PAIN OR NAUSEA AT THIS TIME. PTS HANDS THIS RN A BAG OF MEDICATIONS STATING "THESE ARE ALL NEW AND I DON'T KNOW IF WE SHOULD USE THEM." MEDICAITONS BOTTLES DATED 12/31/20 (TIZANIDINE), 09/27/21 (tRIAMTERENE-hctz), 09/09/21 (gABAPENTIN), 09/28/21 (TRAMADOL). JORI STATES "I'M JUST NOT SURE WHAT TO GIVE HIM." MED REC UPDATED. DR. FOWLER UPDATED REGARDING THESE MEDICATIONS. NO NEW ORDERS AT THIS TIME. MEDICATION BOTTLES GIVEN BACK TO MARTI, PTS , WHO IS ENCORUAGED TO TAKE THESE MEDICATIONS HOME AND ASSURED SHE WILL BE PROVIDED WITH INSTRUCTIONS AT DISCHARGE. PT AND DENY ADDITIONAL REQUESTS OR COMPLAINTS. CALL LIGHT WITHIN REACH. CHAIR ALARM ON.
--- NOTE | 2021-10-01 14:40 | NUR ---
AFTERNOON ASSESSMENT DUE. PT REMAINS UP TO CHAIR. APPLICATION SPEC REPORTS PT RECENTLY SET OF HIS CHAIR ALARM TRYING TO GET UP TO USE THE RESTROOM. PT REPORTS HE WAS ABLE TO VOID "JUST FINE." PT OFFERED TIME BACK TO BED, JEFF AT THIS TIME STATING "THIS CHAIR IS MORE COMFORTABLE THAN THE BED." PT DENIES PAIN AT THIS TIME EXCEPT "IF I MOVE MY ARM." AT TIMES PT REPORTS "A LITTLE" PAIN IN HIS LEFT ARM, PT REPORTS 5/10 PAIN USING FACES SCALE. PT DECLINES PAIN MEDICATION AT THIS TIME STATING "NO, NO, I DONT' NEED ANYTHING." PT OREINTED TO ALL BUT DATE/MONTH/TIME, AWARE OF SELF, PLACE, AND EVENTS AND FOLLOWING ALL DIRECTIONS. PT STATES HIS LEFT TO "GO TO THE LIBRARY." CMS INTACT TO ALL EXTREMITIES. STRONG PULSES NOTED IN LEFT ARM. GARMENT STEAMER STRENGTH NOTED TO BE WEAKER IN LEFT ARM COMPARE TO RIGHT ARM. PT REPORTS NORMAL SENSATION TO FINGERS. +3 PITTING EDEMA NOTED TO LEFT ARM AND HAND, WORSENING COMPARED TO THIS MORNINGS ASSESSMENT. INSTRUCTIONS FROM MD TO LEAVE CUFF AND COLLAR IN PLACE TO ALLOW ELBOW TO DROP. HAND ELEVATED ON BLANKET. LUNG SOUNDS CLEAR. OXGYEN SATURATIONS REMAIN ABOVE 94% ON 2L O2 BY NC. EDEMA TO BLE APEARS INCREASED COMPARED TO THIS MORNINGS ASSESSMENT, NOW +2. DEPENDANT EDEMA CONTINUES. PT DENIES ADDITONAL REQUESTS OR COMPLAINTS. CONTINEUS TO USE URINAL, VOIDING QUANTITY SUFFICENT. NEW IV FLUID BAG HUNG. CALL LIGHT WITHIN REACH. CHAIR ALARM ON.
--- NOTE | 2021-10-01 15:36 | NUR ---
THIS RN TO ROOM TO CHECK ON PT. PTS STATES SHE WILL BE LEAVING SOON. DR. FOWLER UPDATED REGARDING PTS LUE AND SWELLING WELL PTS 'S PLAN TO LEAVE SOON. NO ADDITIONAL NEW ORDERS. STATES HE WILL ROUND SOON. PTS REQUESTS TO TALK TO TEDDY, CORE MACHINE OPERATOR. TEDDY UPDATED AND TO ROOM TO TALK WITH PT AND FAMILY. PT REPORTS HIS LEFT ARM IS FEELING "JUST FINE." DENIES NEED FOR MEDICATION. NO ADDITIONAL REQUESTS OR COMPLAINTS. CALL LIGHT WITHIN REACH. CHAIR ALARM ON.
--- NOTE | 2021-10-01 15:57 | NUR ---
PT HERE FOR CARINA AND LEFT HUMERUS FRACTURE. PT UP TO CHAIR WITH 2 PERSON ASSIST AND USE OF CANE. PT STANDS WITH ASSTANCE TO USE URINAL THIS SHIFT. PT TOLREATING REGULAR DIET WITH MINIMAL INTAKE. PT CONFUSED AND FORGETFUL AT TIMES BUT GENERALLY ORIENTED THROUGHOUT SHIFT, SLOW TO WAKE UP AND NEEDS REORIENTATION AFTER SLEEPING. PT REMAINS ON 2L O2 BY NC TO MAINTAIN OXYGEN SATURATIONS ABOVE 94%. LUNG SOUNDS CLEAR. EDMA TO BLE AND LEFT ARM IMPROVED THIS MORNING BUT WORSENING THROUGHOUT DAY. LEFT UPPER ARM REMAINS IN CUFF AND COLLAR, EDEMA NOW AT +3, STRONG PULSES NOTED. CMS INTACT. +2 PITTING EDEMA NOTED TO DEPENDANT AREAS AND BLE. MONITORING LABS, KIDENY FUNCTION LABS HIGHER THIS SHIFT. PT VOIDING QUANTITY SUFFICIENT. PT DOES NOT USE CALL LIGHT. BED/CHAIR ALARM FOR SAFETY.
--- NOTE | 2021-10-01 16:08 | NUR ---
CHAIR ALARM SOUNDING. PT ATTMEPTING TO GET UP TO PEE. THIS RN TO ROOM. PT USES URAINAL WITH 1 PERSON ASSIST UP TO STAND. 1 PERSON ASSIST BACK TO BED. PT POSITIONED FOR COMFOR WITH LEFT ARM IN CUFF AND COLLAR AND HEAD OF BED ELEVATED TO 45 DEGREES. PT REPORTS 6/10 PAIN IN LEFT ARM, SEE MAR FOR MEDICATION GIVEN. PT DENIES ADDITIONAL REQUESTS OR COMPLAINTS. RESTING WITH EYES CLOSED, RESPARTIONS EVEN AND UNLABORED. BED RAILS UP. CALL LIGHT WITHIN REACH. BED ALARM ON.
--- NOTE | 2021-10-01 16:45 | NUR ---
THIS RN TO ROOM WITH MD FOR ROUNDS. DR. FOWLER UPDATED ON PTS STATUS ESPICIALLY LEFT ARM SWELLING. LYMPHEDEMA STOCKING SUGGESTED, NOT SUPPLIED AT THIS FACILITY. DR. FOWLER STATES TO APPLY KASSI HOSE INSTEAD TO LEFT ARM. SMALL KASSI HOSE APPLED WITH ASSISTANCE FROM NEETU POLLOCK. PT WAS PREMEDICATED, GRIMICES WITH PAIN AT TIMES. ONCE APPLIED, CUFF AND COLLAR REAPPLIED OVER KASSI HOSE. PT REPORTS "I ALMOST HAD TEARS IN MY EYES BUT NOW IT FEELS JUST FINE." PT POSITIONED FOR COMFORT, HEAD OF BED ELEVATED TO 45 DEGREES. STRONG PULSES TO LEFT ARM FELT, CMS INTACT. PT DENIES ADDITIONAL REQUESTS OR COMPLAINTS. BED RAILS UP. BED ALARM ON. CALL LIGHT WITHIN REACH.
--- NOTE | 2021-10-01 17:40 | NUR ---
THIS RN TO ROOM TO CHECK ON PT. PT RESTING IN BED WITH EYES CLOSED. RESPIRATIONS EVEN AND UNLABORED. HEAD OF BED ELEVATED TO 45 DEGREES. PT ALLOWED TO REST. CALL LIGHT WITHIN REACH. BED RAILS UP. BED ALARM ON.
--- NOTE | 2021-10-01 17:56 | NUR ---
THIS RN TO ROOM TO CHECK ON PT. PT RESTING WITH EYES CLOSED. RESPIRATIONS EVEN AND UNLABORED RR = 12. BED RAILS UP. CALL LIGHT WIHTIN REACH. PT ALLOWED TO REST. BED ALARM ON.
--- NOTE | 2021-10-01 18:51 | NUR ---
THIS RN TO ROOM TO CHECK ON PT. MEN'S AND BOYS' CLOTHING SALESPERSON AT BEDSIDE FOR VITAL SIGNS. VITAL SIGNS STABLE. PT REPOSITIONED IN BED FOR DINNER, HEAD OF BED ELEVATED TO 55 DEGREES. PT DENIES PAIN OR NAUSEA AT THIS TIME. PT FEEDING SELF DINNER. NO ADDIITONAL REQUESTS OR COMPLAINTS. ICE PROVIDED FOR SODA, PUDDING PROVIDED PER PT REQUEST. CALL LIGHT WITHIN REACH. BED RAILS UP. BED ALARM ON.
--- NOTE | 2021-10-01 19:15 | NUR ---
SHIFT REPORT RECEIVED FROM DAYSHIFT RN MELISSA AT BEDSIDE. pt BOOSTED IN BED AND REPOSITIONED, HOB REMAINS ELEVATED TO 45 DEGREES. PILLOWS UNDER LEFT SIDE. LEFT SHOULDER SLING AND KASSI HOSE IN PLACE TO LUE. BLE EDEMA NOTED, BUT IMPROVING, NOW +1. NO ADDITIONAL NEEDS VERBALIZED, CALL LIGHT IN REACH. BED ALARM ON AND pt IN VIEW OF RN STATION.
--- NOTE | 2021-10-01 21:05 | NUR ---
pt ATTEMPTING TO GET OOB WITH NASAL CANULA OFF OF FACE, SPO2 LOW 90'S AFTER BACK IN PLACE ON 2LNC. pt REORIENTED AND BACK IN BED AND ASSISTED WITH REPOSITIONING, PILLOW UNDER LEFT SIDE AND RIGHT ARM. ASSISTED WITH URINAL, NO ADDITIONAL NEEDS. CALL LIGHT IN REACH AND BED ALARM ON FOR SAFETY.
--- NOTE | 2021-10-01 22:30 | NUR ---
ASSESSMENT COMPLETE, CONNER FORTUNE IN ROOM TO ASSIST WITH pt BOOST AND REPOSITION. BILATERAL HIPS FLOATED, LEFT SHOULDER SLING IN PLACE ALONG WITH LUE KASSI HOSE TO ASSIST IN EDEMA. NO CREASES IN KASSI HOSE AT THIS TIME, CMS INTACT. pt ABLE TO TELL WHAT SIDE IS TOUCHED AND DENIES NUMBNESS AND TINGLING. STRONG PEDAL AND RADIAL PULSES NOTED. HOB REMAINS AT LEAST 45 DEGREES. BLE EDEMA ALSO IMPROVING, CURRENTLY +1 AND ELEVATED IN BED. IV SITE X2 WNL AND FLUSHES EASILY. FLUIDS INFUSING DIRECTED. BED ALARM ON AND CALL LIGHT IN REACH. SKIN INTACT, NO REDDNESS OR SIGNS OF SKIN BREAKDOWN NOTED TO BUTTOCKS/COCCYX.
--- NOTE | 2021-10-01 22:45 | NUR ---
IN TO ASSIST RN WITH BOOSTING AND LINEN CHANGE FOR PT, PT FLOATED WITH PILLOWS TO BOTH HIPS, BED ALARM ON, NO FURTHER NEEDS
--- NOTE | 2021-10-02 00:15 | NUR ---
pt RESTING IN BED, EYES CLOSED. RR EVEN AND UNLABORED. HOB REMAINS AT 45 DEGREES. RT JAZMIN IN ROOM TO ALSO ROUND ON pt, SPO2 92% ON 1LNC. CALL LIGHT IN REACH AND BED ALARM ON.
--- NOTE | 2021-10-02 00:58 | NUR ---
pt RESTING IN BED, AWOKE TO VOICE. AFTER INFORMING pt WAS DUE TO BE TURNED, pt STATES, "AT ONE IN THE MORNING? I WAS SOUND ASLEEP". PILLOWS REMOVED FROM RIGHT HIP. LEFT SHOULDER CUFF AND SLING FOUND OFF OF pt AND ON TABLE, SLING AND CUFF BACK IN PLACE WITH HOB ELEVATED AT 45 DEGREES. KASSI HOSE FOR LUE REPOSITIONED, NO WRINKLES IN KASSI HOSE AT THIS TIME. CMS REMAINS INTACT, STRONG BILATERAL RADIAL PULSES NOTED. IV SITE WNL, FLUIDS INFUSING DIRECTED. BED ALARM ON AND CALL LIGHT IN REACH.
--- NOTE | 2021-10-02 00:59 | NUR ---
REMOVED PILLOW FROM PTs RIGHTSIDE TO REPOSITION PT, PT HAD ARM SLING OFF, REPLACED, BED ALARM REMAINS IN PLACE, NO FURTHER NEEDS
--- NOTE | 2021-10-02 03:15 | NUR ---
ASSESSMENT COMPLETE, NO NEW CHANGES OR CONCERNS. PRN PAIN MEDICATION GIVEN FOR 5-6/10 PAIN IN LEFT SHOULDER. SHOULDER COLLAR AND SLING REMAINS IN PLACE, AT 45 DEGREES. HOB ALSO ELEVATED TO 45 DEGREES. NO ISSUES WITH SWALLOWING NOTED. KASSI HOSE TO LUE ADJUSTED, NO WRINKLES NOTED. CALL LIGHT IN REACH. NEW BAG IV FLUIDS HUNG AND INFUSING DIRECTED. IV SITE WNL. BED ALARM ON.
--- NOTE | 2021-10-02 03:15 | NUR ---
ASSESSMENT COMPLETE, NO NEW CHANGES OR CONCERNS. PRN PAIN MEDICATION GIVEN FOR 5-6/10 PAIN IN LEFT SHOULDER. SHOULDER COLLAR AND SLING REMAINS IN PLACE, HOB ELEVATED TO 45 DEGREES. NO ISSUES WITH SWALLOWING NOTED. KASSI HOSE TO LUE ADJUSTED, NO WRINKLES NOTED. CALL LIGHT IN REACH. NEW BAG IV FLUIDS HUNG AND INFUSING DIRECTED. IV SITE WNL. BED ALARM ON. pt BOOSTED IN BED WITH HELP FROM PHILL CAPELLAN. PILLOWS REMOVED AT THIS TIME.
--- NOTE | 2021-10-02 04:23 | NUR ---
PATIENT SLEEPING ON 2 LPM NC WITH NO SIGNS OF DISTRESS.
--- NOTE | 2021-10-02 05:00 | NUR ---
IN TO GET VITALS, REPOSITION PT, ICE WATER PROVIDED
--- NOTE | 2021-10-02 05:17 | NUR ---
THIS RN IN ROOM TO REPOSITION pt. pt RESPOSITIONED WITH HELP FROM CONNER FORTUNE. PILLOWS PLACED UNDER RIGHT HIP, LEFT SHOULDER COLLAR AND SLING REMAINS IN PLACE, HOB REMAINS AT 45DEGREES PER MD ORDERS. KASSI HOSE TO LUE REMAINS IN PLACE, NO WRINKLES NOTED. BLANKET ALSO PLACED UNDER LEFT HAND TO ASSSIT WITH IMPROVING EDEMA. CONNER FORTNUE IN ROOM TO COLLECT AM VS. CALL LIGHT IN REACH AND BED ALARM ON.
--- NOTE | 2021-10-02 06:16 | NUR ---
BP CONTINUES TO BE ELEVATED, PRN BLOOD PRESSURE MEDICATION PROVIDED, SEE EMAR. WILL CONTINUE TO MONITOR. BED ALARM ON AND CALL LIGHT IN REACH.
--- NOTE | 2021-10-02 07:19 | NUR ---
REPORT RECEIVED FROM PHILL STOVALL. PT RESTLESS AND CLIMBING OUT OF BED. PT REPORTS HE JUSTED USED THE URINAL, DENIES NEED TO VOID OR USE COMODE. PT STATES "I'M GETTING CONSTIPATED." BOWEL REGEMIN MEDICATIONS ORDERED. 2 PERSON ASSIST UP TO CHAIR. PT REPORTS "THAT FEELS BETTER." PT CONTINUES TO REPORT PAIN IN ARM AT 5/10 WHEN MOVING, WHEN RESTING PT STATES "IT'S FINE NOW." PT DENIES NEED FOR PAIN MEDICATION AT THIS TIME. PTS GOWN NOTED TO BE WET, CHANGED. PT DENIES ADDITIONAL REQUESTS OR COMPLAINTS. CALL LIGHT WITHIN REACH. CHAIR ALARM ON.
--- NOTE | 2021-10-02 07:31 | NUR ---
MESSAGE SENT TO DR FOWLER REGARDING pt's ELEVATED BP AND THAT PRN BP MEDICATION WAS GIVEN, SEE EMAR. RONNY TORRES TO FOLLOW-UP AND RECHECK BP.
--- NOTE | 2021-10-02 07:40 | NUR ---
MORNING ASSESSMENT AND MEDICATION DUE. PT REMAINS UP TO CHAIR, AGITATED AND TRYING TO GET OUT OF CHAIR. PT STATES "I'M JUST SLIDING OUT OF THIS CHAIR." PT ASSISTED WITH REPOSITIONING. STATES "NOW, THAT'S BETTER." PT REPORTS 5/10 PAIN IN LEFT ARM, DECLINES PAIN MEDICATION STATING "MAYBE LATER." PT ORIENTED TO ALL BUT DATE/TIME/YEAR AND RESON FOR BEING AT THE HOSPITAL, WHEN ASKED PT STATES "BECAUSE MY FOOT IS BROKEN." AFTER REORIENTATION PT IS ABLE TO REPEAT BACK INFORMATION SUPPLIED. IVs ASSESSED, WNL, NO S/S OF PHLEBITIS NOTED. FIELD START LEFT IN PLACE IT IS FUNCTIONING WELL AND HAS GOOD BLOOD RETURN, ALCOHOL CAP IN PLACE. IV FLUIDS INFUSING THROUGH HOSPITAL START, LOWER RIGHT FORARM, IV. NUCLEAR OPERATOR STRENGTH EQUAL BILATERALLY. STRONG PULSES NOTED IN BOTH ARMS. PT REPORTS "YEAH I CAN FEEL ALL MY FINGERS AND TOES." SWELLING TO LEFT UPPER ARM IMPROVED SINCE YESTERDAY WITH KASSI HOSE/SLEEVE IN PLACE. NOW GENERALIZED AT +1 LEVEL IN ARM AND +2 IN L HAND AND UPPER LEFT ARM. +1 PITTING EDEMA NOTED IN BLE, IMPROVED SINCE YESTERDAY. LEFT ARM REMAINS IN CUFF AND COLLAR BRACE. LUNG SOUNDS CLEAR. PT REMAINS ON 1L O2 BY NC TO MAINTAIN OXGYEN SATURATIONS ABOVE 92%. PT CONTINUES TO REPORT CONSTIPATION, SEE MAR FOR MEDICATION GIVEN. BLOOD PRESSURE NOTED TO BE ELEVATED. PRN MEDICATION RECENTLY GIVEN, MD AWARE, MORNING MEDICATIONS GIVEN. PT REMAINS UP TO CHAIR, BREAKFAST ORDER PLACED. PT ASSISTED WITH USING URINAL. VOIDS 175ML CLEAR YELLOW URINE. NO ADDITIONAL REQUESTS OR COMPLAINTS. CALL LIGHT YESI LYON.
--- NOTE | 2021-10-02 08:54 | NUR ---
THIS RN TO ROOM TO CHECK ON PT. PT TRYING TO GET OUT OF CHAIR. PT REPORTS HE WOULD LIKE TO SIT ON THE TOILET TO TRY TO HAVE A BOWEL MOVEMENT. 2 PERSON ASSIST UP TO CHAIRSIDE COMODE. PT VOIDS BUT IS UNABLE TO HAVE A BOWEL MOVEMENT. BOWEL REGIMINE MEDICATIONS GIVEN. JENNIFER CARE PERFORMED. 2 PERSON ASSIST BACK TO CHAIR. CUFF AND COLLAR REMAINS IN PLACE. PT REPORTS ONGOING 6/10 PAIN IN LEFT ARM, AGREES TO TAKE PAIN MEDIATION (SEE MAR). BREAKFAST DELIVERED. PT DENIES ADDITIONAL REQUESTS OR COMPLAINTS. ASSISTED WITH TRY SET UP. LEGS ELEVATED. CHAIR ALARM ON. CALL LIGHT WITHIN REACH.
--- NOTE | 2021-10-02 09:10 | NUR ---
NEW ORDERS FROM . IV FLUSHED AND SALINE LOCKED PER PROTOCOL. ALCOHOL CAP APPLIED. MEDICATIONS GIVEN. PT EATING BREAKFAST. NO ADDITIONAL REQUESTS OR COMPLAINTS. CALL LIGHT WIHTIN REACH. CHAIR ALARM ON.
--- NOTE | 2021-10-02 10:20 | NUR ---
PT ATTEMPTING TO GET OUT OF THE CHAIR. THIS RN TO ROOM. PT REPORTS NEED TO USE THE RESTROOM. 2 PERSON ASSIST UP TO BEDSIDE COMODE. PT VOIDS BUT CONTINUES TO BE UNABLE TO HAVE A BOWEL MOVEMENT. PT HAS FINISHED MIRALAX DOES. JENNIFER CARE DONE. PT UP TO SHOWER CHAIR ON WHEELS FOR SHOWER. IVs COVERED. CUFF AND COLLAR AND KASSI HOSE SLEEVE REMOVED FOR SHOWER. JOANN PRIETO ASSISTING PT WITH SHOWER. PT RPEORTS 5/10 PAIN IN LEFT ARM PRIOR TO SHOWER, DENIES NEED FOR ADDITIONAL PAIN MEDICATIONS. NO ADDITIONAL NEEDS AT THIS TIME. CALL LIGHT WITHIN REACH.
--- NOTE | 2021-10-02 10:54 | NUR ---
PT FINISHED WITH SHOWER. 2 PERSON ASSSIT BACK TO CHAIR. KASSI HOSE TO LEFT ARM AND CUFF AND COLLAR PLACED BACK ON LEFT ARM. CMS REMAINS INTACT WITH STRONG PULSES NOTED. PT TOLERATED PROCEEDURE WITH 7-9/10 PAIN. AFTER RETURNING TO REST PT REPORTS 5/10 PAIN AND DENIES NEED FOR ADDITIONAL PAIN MEDICATION. PT REMAINS UP TO CHAIR. CHAIR ALARM IN PLACE. CALL LIGHT WITHIN REACH.
--- NOTE | 2021-10-02 11:29 | NUR ---
THIS RN TO ROOM TO CHECK ON PT. PT RESTING WITH EYES CLOSED, RESPIRATIONS EVEN AND UNLABORED. CUFF AND COLOR AND KASSI HOSE TO LEFT ARM REMAIN IN PLACE. CALL LIGHT WITHIN REACH. CHAIR ALARM ON. PT ALLOWED TO REST.
--- NOTE | 2021-10-02 12:09 | NUR ---
LUNCH DELIVERED TO PT. PT RESTING WITH EYES CLOSED. AWAKENS TO MOVEMENT IN THE ROOM. PT REPORTS "I ALREADY ATE LUNCH." PT REOIRENTED TO PLACE AND TIME AND STATES "OH, YEAH, I'LL EAT THAT, I'M HUNGRY." PT REPORTS 5/10 PAIN IN LEFT ARM STATING "IT'S JUST SORE." PT DENIES NEED FOR PAIN MEDICATION. PT FEEDING HIMSELF, NEEDS HELP WITH TRY SETUP. CALL LIGHT WITHIN REACH. CHAIR ALARM ON.
--- NOTE | 2021-10-02 13:38 | NUR ---
THIS RN TO ROOM TO CHECK ON PT. AFTERNOON ASSESSMENT DUE. PT UP TO CHAIR, TRYING TO CLIMB OUT OF CHAIR. WHEN ASKED WHERE HE IS GOING PT IS UNABLE TO CLARIFY. PT DENIES NEED TO VOID, DENIES PAIN, AND DENIES NEED TO USE COMODE. PT MORE AGITATED THAN THIS MORNING. PT INCONSISTANTLY ORIENTED. WHEN ASKED WEHRE HE IS PT RESPONDS WITH GARBLED WORDS THAT ARE NOT COHERANT. PT ASKED AGAIN AND RESPONDS "AT THE [facility]." THIRD TIME PT RESPONDS CORRECTLY "AT [facility]." SMALL RIGHT SIDED FACIAL DROOP NOTED, STROKE ASSESSMENT OTHERWISE WNL. PT RECOGNIZES HIS BUT IS UNABLE TO STATE HER NAME. PT KNOWS HIS OWN NAME BUT STATES HE IS "68" YEARS OLD. PT UNABLE TO USES FACES OR NUMERIC SCALE TO RATE PAIN. FLACC SCORE OF 2/10. PT DENEIS NEED FOR PAIN MEDICATION. PT TRYING TO REMOVE LOWER GOWN STATING HE WANTS TO "THROW THIS GARBAGE AWAY." WHEN REORIENTED PT CAMLS BUT BECOMES AGITATED AGAIN SHORTLY THERE AFTER. ARM AND LEG STRENGTH EQUAL BILATERALLY. LARD TUB WASHER STRENGTHS STRONG. PT ABLE TO LIFT LEGS OFF THE CHAIR. PT ABLE TO STAND WITH 1 PERSON ASSIST, UNSTEADY ON FEET. CMS INTACT TO ALL EXREMITIES, ESPICIALLY NOTED IN LEFT ARM. STRONG PULSES NOTED IN ALL EXTREMITIES. EDEMA UNCHANGED FROM THIS MORNINGS ASSESSMENT. CUFF AND COLAR WELL KASSI HOSE SLEEVE REMAIN IN PLACE TO LEFT UPPER ARM. LEGS ELEVATED IN CHAIR. LUNG SOUNDS CLEAR. PT NOTED TO HAVE DROPPED TO 90% ON ROOM AIR. PT PLACED BACK ON 1L O2 BY FL WITH OXYGEN SATURATIONS RISING TO 94%. PT BECOMES AGITATED AGAIN, STATES HE IS READY TO VOID. PT ASSISTED WITH USING URINAL, PT MISSES, CHUX WET. PT UP TO STAND. CHUX CHANGED. JENNIFER CARE DONE. PT VOIDS 175ML CLEAR YELLOW URINE. PT BACK TO CHAIR. DR. FOWLER CALLED AND UPDATED ON PT CONDITION, CHANGES, AND INCREASED AGITATION. DR. FOWLER STATES PROBABLE HOSPITAL RELATED DELIERIUM, TO KEEP PT AWAKE BLINDS OPEN AND REORIENT FREQUENTLY. PTS FAMILY UPDATED AND AT BEDSIDE. PT UP TO CHAIR AND FACING OUT THE WINDOW. CHAIR ALARM ON. NO ADDITIONAL REQUESTS OR COMPLAINTS. CALL LIGHT WITHIN REACH. FAMILY AT BEDSIDE. ROOM NEAR NURSES STATION.
--- NOTE | 2021-10-02 14:36 | NUR ---
PHYSICAL THERAPIST REPORTS TO THIS RN THAT PT IS REQUESTING "AN ASPIRIN." THIS RN TO ROOM. PT ENDORSES PAIN TO HIS LEFT ARM/SHOULDER. PT AGREES TO TAKE PAIN MEDICATION. SEE MAR FOR MEDICATION GIVEN. PT CONTINUES TO BE CONFUSED. CARES EXPLAINED, PT REORIENTED. VITAL SIGNS STABLE. PTS AT BEDSIDE. PT DENIES ADDITIONAL REQUESTS OR COMPLAINTS. CALL LIGHT WITHIN REACH. CHAIR ALARM ON.
--- NOTE | 2021-10-02 15:43 | NUR ---
THIS RN TO ROOM TO CHECK ON PT. PT UP TO CHAIR. RESTING OFF AND ON WITH EYES CLOSED. PT USES FACES SCALE TO POINT TO 4/10 PAIN. PT DENIES NEED FOR ADDITIONAL PAIN MEDICATIONS. PTS AT BEDSIDE, UP DATED ON PLAN OF CARE. PT CONTINUES FACING TOWARD WINDOW TO SEE THE OUT DOORS. LIGHTS IN ROOM ON. PTS STATES PT IS RESTING WITH HIS EYES CLOSED ON AND OFF. NO ADDITIONAL REQUESTS OR COMPLAINTS. CALL LIGHT WITHIN REACH. CHAIR ALARM ON.
--- NOTE | 2021-10-02 16:22 | NUR ---
DR. WADE UPDATED ON PT STATUS. NO NEW ORDERS AT THIS TIME.
--- NOTE | 2021-10-02 16:31 | NUR ---
THIS RN TO ROOM TO CHECK ON PT. PT REMAINS UP TO CHAIR. PT RESTING WITH EYES CLOSED, RESPIRATIONS EVEN AND UNLABORED. PTS NO LONGER AT BEDSIDE. LIGHTS ON IN ROOM, WINDOW SHADE OPEN. PT ALLOWED TO REST. CHAIR ALARM ON. CALL LIGHT WITHIN REACH.
--- NOTE | 2021-10-02 17:22 | NUR ---
DINNER DELIVERED TO PT. PT RESTING WITH EYES CLOSED. AWAKENS TO VOICE. PT RESPONDS APPROPRIATLY TO QUESTIONS BUT CONTINUES TO BE VERY DROWSY. FALLS BACK TO SLEEP QUICKLY. PT ASSIST WITH TRAY PREPARATIONS. CHAIR ALARM REMAINS ON. CALL LIGHT WITHIN REACH.
--- NOTE | 2021-10-02 17:33 | NUR ---
PT HERE FOR CARINA AND LEFT HUMERUS FRACTURE. PT UP WITH 2 PERSON ASSIST TO CHAIR AND FOR SHOWER. PT UNSTEADY ON FEET WITH WOBBLING GATE. PT TOELRATIN REGULAR DIET WITH MODERATE INTAKE. PT REMAINS ON 1L O2 BY TN, ROOM AIR TRIAL ATTEMPTED WITH OXGYEN SATUARTION DROPPING TO 90%. +1PITTING EDEMA CONTINUES TO BLE, LEFT UPPER ARM SWELLING IMPROVED NOW GENERALIZED AT +1. CUFF AND COLLAR AND KASSI HOSE COMPRESSION SLEVE REMAIN IN PLACE TO LUE. PRN PAIN MEDICAITON GIVEN FOR 6/10 PAIN IN LUE THIS SHIFT. PT INCRESINGLY CONFUSED AND AGITATED THIS SHIFT. AWARE. MEASURES TAKEN TO REORIENT PT. IV NOW SALINE LOCKED. PT VOIDING QUANTITY SUFFICIENT. PT DOES NOT USE CALL LIGHT, BED/CHAIR ALARM FOR SAFETY.
--- NOTE | 2021-10-02 18:25 | NUR ---
THIS RN TO ROOM TO CHECK ON PT. PT FINISHED WITH DINNER, ABLE TO EAT ~75% OF HIS MEAL. PT DENIES NEED TO VOID, IS NOTED TO HAVE A WET GOWN AND WET CHUX. 2 PERSON ASSIST UP TO STAND. JENNIFER CARE DONE. PT ASSISTED WITH USING URINAL, VOIDS AND ADDITIONAL 150ML CLEAR YELOOW URINE. 2 PERSON ASSIST BACK TO BED. PT POSITIONED FOR COMFORT WITH HEAD OF BED ELEVATED TO 45 DEGREES. PT CALM AND INTERACTING APPROPRIATLY BUT DISORIENTED TO PLACE AND EVENTS. PT UNABLE TO RATE PAIN IN HIS LEFT ARM, BECOMING DISTRACTED PRIOR TO FINISHING ANSWER. FLACC SCORE OF 2/10. WARM BLANKETS PROVIDED. BED RAILS UP. BED ALARM ON. PT DENIES ADDITIONAL REQUESTS OR COMPLAINTS, NOW RESTING WITH EYES CLOSED. RESPIRATIONS EVEN AND UNALBORED. CALL LIGHT WITHIN REACH.
--- NOTE | 2021-10-02 19:15 | NUR ---
SHIFT REPORT RECEIVED FROM RONNY TORRES AT BEDSIDE. pt RESTING QUIETLY IN BED, HOB ALREADY RAISED TO 45 DEGREES. LEFT SHOULDER COLLAR AND SLING IN PLACE ALONG WITH KASSI HOSE FOR EDEMA CONTROL. STRONG RADIAL PULSE NOTED IN LUE, WILL CONTINUE TO MONITOR CMS. NO WRINKLES NOTED WITH KASSI HOSE. BLE ALSO ELEVATED IN BED. 1LNC IN PLACE, RESPIRATIONS EVEN AND UNLABORED-SOMEWHAT SHALLOW. NO DISTRESS NOTED. IV SITESX2 WNL. BED ALARM ON AND CALL LIGHT IN REACH.
--- NOTE | 2021-10-02 21:21 | NUR ---
ASSISTED pt WITH USE OF URINAL. pt ALSO BOOSTED IN BED WITH HELP FROM DRAPERY COUNSELORPHILL DOMINGUEZ, REPSOITIONED IN BED, PILLOWS UNDER LEFT HIP AND RUE. HOB REMAINS AT 45 DEGREES, NO ADDITIONAL NEEDS. CALL LIGHT IN REACH AND BED ALARM ON.
--- NOTE | 2021-10-02 22:44 | NUR ---
ASSESSMENT COMPLETE, WITH HELP FROM JUDICIAL ASSISTANT ANGELICA, pt UP SBA WITH CANE TO STAND FOR BED CHANGE. JUICE RECNETLY SPILLED IN BED. pt BACK IN BED HOB ELEVATED TO 45 DEGREES, LEFT SHOULDER SLING AND COLLAR REMAINS IN PLACE. CMS INTACT, pt DENIES NUMBNESS AND TINGLING. STRONG RADIAL PULSES AND PEDAL PULSES NOTED. KASSI HOSE ALSO TO LUE. NO WRINKLES IN KASSI HOSE. PILLS GIVEN WHOLE, NO ISSUES SWALLOWING NOTED. BED ALARM ON, CALL LIGHT IN REACH. IV SITE TO RIGHT FOREARM LEAKING, SITE DC'D, CATHETER TIP INTACT. REMAINING IV SITE WNL, SALINE LOCKED.
--- NOTE | 2021-10-03 00:09 | NUR ---
pt RESTING IN BED, BILATERAL HIPS REMAIN FLOATED, HOB REMAINS AT 45 DEGREES. RR 16, EVEN AND UNLABORED. 1LNC REMAINS IN PLACE. BED ALARM ON AND CALL LIGHT IN REACH.
--- NOTE | 2021-10-03 01:07 | NUR ---
IN ROOM TO REPOSITION pt, pt AWAKE AND RESTING IN BED, NC REMOVED FROM FACE, REPLACED. 93%, 1LNC. BP CHECKED, REMAINS ELEVATED. FIRST ATTEMPT 181/88, SECOND ATTEMPT 186/83, MAP OF 110, HR 65. DR WADE ALREADY AT RN STATION AND UPDATED ON INFORMATION ABOVE WELL BP AT START OF SHIFT. PER DR WADE OKAY TO GIVE PRN BP MEDICATION, SEE EMAR. MED GIVEN, NO ISSUES SWALLOWING NOTED. pt BOOSTED IN BED AND REPOSITIONED IN BED WITH HELP FROM RT WU, PILLOWS REMOVED FROM RIGHT SIDE. BLE ELEVATED WITH PILLOW. BED ALARM ON FOR SAFETY, CALL LIGHT IN REACH.
--- NOTE | 2021-10-03 03:32 | NUR ---
ASSESSMENT COMPLETE, BP IMPROVED AND WITHIN PARAMETERS. pt BOOSTED AND REPOSITIONED IN BED WITH HELP FROM CONNER FORTUNE. PILLOWS REMOVED FROM LEFT SIDE FOR COMFORT. LEFT SHOULDER SLING AND COLLAR IN PLACE, CMS INTACT. NO WRINKLES TO KASSI HOSE TO LUE. BLE REMAIN ELEVATED WITH PILLOW. pt DENIES PAIN AND DENIES NEED FOR PAIN MEDICATION. WILL CONTINUE TO MONITOR. CALL LIGHT IN REACH, FRESH JUICE PROVIDED. BED ALARM ON.
--- NOTE | 2021-10-03 04:57 | NUR ---
BED ALARM GOING OFF, pt UP 2PA WITH CANE TO BSC TO ATTEMPT TO HAVE BM. BM UNSUCCESSFUL, pt BACK TO BED. BOOSTED AND REPOSITIONED, BILATERAL HIPS FLOATED. HOB REMAINS AT 45 DEGREES WITH LEFT SHOULDER SLING AND COLLAR IN PLACE. NO WRINKLES TO KASSI HOSE ON LUE. BLE REMAIN ELEVATED, VSS. pt ON 1LNC. BP REMAINS ELEVATED, BUT WITHIN PARAMETERS. NO FURTHER NEEDS, CALL LIGHT IN REACH AND BED ALARM ON.
--- NOTE | 2021-10-03 08:00 | NUR ---
PT AWAKE IN ROOM. PT USED URINAL AND WAS 1PA STAND PIVOT TO THE CHAIR. WHITE BOARD UDPATED. WASH CLOTH GIVEN FOR FACE. CALL LIGHT WITHIN REACH. CHAIR ALARM ON. NO FURTHER NEEDS AT THIS TIME.
--- NOTE | 2021-10-03 09:16 | NUR ---
Morning medications passed. Patient has elevated bp of 186/84, p82. Patient just did several laps with physical therapy. Morning cardiac meds just passed. Will recheck bp here in fifteen minutes to see if bp comes back down.
--- NOTE | 2021-10-03 09:38 | NUR ---
BP REDUCED TO 178/84. M108, P78 AT THIS TIME. PATIENT RESTING IN CHAIR WATCHING TV, NO DISTRESS. LEFT ARM REMAINS IN SLING; CMS INTACT. LEFT HAND SWOLLEN, KASSI HOSE TO LEFT ARM. PT TOLERATED BREAKFAST WELL. NO CURRENT NEEDS. PERSONAL SUPPLIES AND CALL LIGHT WITHIN REACH.
--- NOTE | 2021-10-03 15:24 | NUR ---
Patient resting in bed watching tv. Sling to left arm remains intact, cms intact as well. Patient reports his left arm pain is tolerable, 2/10 resting. Left hand has generalized swelling, unchanged.
--- NOTE | 2021-10-03 19:10 | NUR ---
SHIFT REPORT RECEIVED FROM RONNY NAVA AT BEDSIDE. pt AWAKE AND RESTING ON RA, HOB ELEVATED AT 45 DEGREES, LEFT SHOULDER SLING AND COLLAR IN PLACE. NEW KASSI HOSE IN PLACE TO LUE WITH HELP FROM RONNY POLLOCK-OLD ONE WAS DIRTY. IV SITE WNL, SALINE LOCKED. BLE ELEVATED WITH PILLOW. pt REPOSITIONED IN BED, PILLOWS UNDER LEFT SIDE. BED ALARM ON, CALL LIGHT IN REACH.
--- NOTE | 2021-10-03 20:30 | NUR ---
ASSISTED PRIMARY RN WILMAN. CHANGED BED LINEN. PUT PULL UPS ON PATIENT. PATIENT REPOSITIONED. V/S AND I&O'S DONE AND RECORDED.
--- NOTE | 2021-10-03 20:40 | NUR ---
ASSESSMENT COMPLETE, SCHEDULED MEDS GIVEN-SEE EMAR. MEDS GIVEN WHOLE, NO ISSUES SWALLOWING NOTED. pt A/O TO ALL BUT DATE, EASILY REORINETED AT THIS TIME AND PLEASANT. pt SPILLED URINAL, pt UP SBA WITH CANE WHILE BED CHANGE WAS COMPLETED. pt TOLERATED WELL. REPOSITIONED IN BED, BILATERAL HIPS FLOATED. NO REDDNESS OR SKIN BREAKDOWN NOTED TO BUTTOCKS/COCCYX. BED ALARM ON FOR SAFETY. LEFT SHOULDER SLING AND COLLAR REMAINS IN PLACE WITH HOB ELEVATED TO 45 DEGREES. CMS INTACT, pt DENIES NUMBNESS AND TINGLING AT THIS TIME. BILATERAL STRONG PEDAL AND RADIAL PULSES NOTED, SKIN PINK IN COLOR AND TEMPERATURE WNL-WILL MONITOR FOR CHANGES. BLE EDEMA NOTED, +1-CURRENTLY ELEVATED IN BED WITH PILLOWS. NO FURTHER NEEDS, CALL LIGHT IN REACH.
--- NOTE | 2021-10-03 21:19 | NUR ---
BED ALARM GOING OFF, pt STATES, "I NEED TO PEE". ASSISTED WITH URINAL. pt THEN BOOSTED IN BED WITH HELP FROM SECURITY ATTENDANT PHILL. pt EDUCATED ON USE OF CALL LIGHT AND DEMONSTRATED CORRECT USE. CALL LIGHT IN REACH AND BED ALARM ON.
--- NOTE | 2021-10-03 23:38 | NUR ---
ROUNDED ON pt, URINAL EMPTIED. pt INCONTINENT OF URINE, JENNIFER CARE DONE AND CLEAN ATTENDS IN PLACE. PILLOW REMOVED FROM RIGHT SIDE. NO FURTHER NEEDS, CALL LIGHT IN REACH. BED ALARM ON.
--- NOTE | 2021-10-04 01:23 | NUR ---
BED ALARM GOING OFF, THIS RN AND ROENTGENOLOGY TEACHEREdin ALEJO IN ROOM TO REPOSITION pt. PILLOWS REMOVED AT THIS TIME FOR COMFORT, HOB REMAINS ELEVATED AT 45 DEGREES. pt WAS SCOOTED DOWN IN BED AND TRYING TO GET OOB TO VOID UPON ENTERING ROOM. 175MLS OUTPUT NOTED WITH X1 INCONTINENCE, JENNIFER CARE DONE AND DRY ATTENDS IN PLACE. VERY SMALL SCRATCH NOTED TO LEFT SCROTUM AREA, BARRIER CREAM APPLIED. NO FURTHER NEEDS, LEFT SHOULDER SLING REMAINS IN PLACE. SPO2 93% ON RA, HR 70'S. BED ALARM ON.CALL LIGHT IN REACH.
--- NOTE | 2021-10-04 01:27 | NUR ---
BED ALARMING. PATIENT TRIED TO GET UP. THIS MULTI TOWNSHIP ASSESSOR AND PRIMARY RN WILMAN HELPED PATIENT USE THE URINAL. PATIENT ALREADY VOIDED ON HIS PULL UPS. REPLACED FRESH PULLUPS. PATIENT REPOSITIONED. BED ALARM ON.
--- NOTE | 2021-10-04 03:40 | NUR ---
pt BOOSTED AND REPOSITIONED IN BED WITH HELP FROM PIPE COREMAKER BAILEY. BILATERAL HIPS FLOATED. ASSESSMENT COMPLETE, NO NEW CHANGES OR CONCERNS. LEFT SLING WITH COLLAR REMAINS IN PLACE AND HOB REMAINS AT 45 DEGREES. CMS INTACT, STRONG BILATERAL PEDAL AND RADIAL PULSES. KASSI HOSE REMAINS IN PLACE TO LEFT ARM. BED ALARM ON AND CALL LIGHT IN REACH.
--- NOTE | 2021-10-04 06:18 | NUR ---
ROUNDED ON pt, pt IN BED ATTENDS DIRTY AND THROWN ON FLOOR NEXT TO BED. WHEN ASKED IF pt TOOK OFF ATTENDS ON HIS OWN, pt STATES, "I MUST HAVE, I LIKE DOING THINGS ON MY OWN". pt INCONTINENT OF MEDIUM BM. pt 1-2PA WITH CANE TO [facility] TO FINISH BM AND NOW BACK IN BED. pt CLEANED UP WITH NEW GOWN IN PLACE. PRN PAIN PILL GIVEN FOR 5/10 PAIN IN LEFT SHOULDER. BED ALARM RESUMED. NO FURTHER NEEDS CALL LIGHT IN REACH. HOB REMAINS AT 45 DEGREES.
--- NOTE | 2021-10-04 07:24 | NUR ---
Patient in bed resting, no distress, respirations even and non labored. Personal supplies and call light within reach.
--- NOTE | 2021-10-04 08:20 | NUR ---
Spoke with Nathalia from [facility]. They will accept this pt tomorrow, preferably in the am. Spoke with and she is in agreement. Plan for dc tomorrow.
--- NOTE | 2021-10-04 11:00 | NUR ---
Received call from Dianna at [facility]. She states they have an opening for Hospice and Wed. Informed was discussing radiation treatments this am. Updated pt will go to [facility] tomorrow. I asked if they would call Rashmi and speak with her directly. Dianna will do this.
--- NOTE | 2021-10-04 11:26 | NUR ---
OT working with patient at this time.
--- NOTE | 2021-10-04 12:44 | NUR ---
Patient resting in bed, no distress. OT re-wrapped left arm with new compression device covering entire left arm as well as the fingers. CMS intact to left harm/hand. Dressing CDI.
--- NOTE | 2021-10-04 13:01 | NUR ---
SPOKE WITH PT'S DANK. SHE IORMED ME THAT [facility] IS A REAL OPTION-WORKING TOWARDS THAT SITUATION. DANK WAS IN WAS IN [place] GETTING SOME LUNCH AND RESTING FOR A MOMENT. GAVE ENCOURAGEMENT, WILL FOLLOW NEEDED
--- NOTE | 2021-10-04 14:23 | NUR ---
Called Floyed at [facility], scheduled transport for 944 and pt will need to use our wc tomorrow. WC van will return our wc.
--- NOTE | 2021-10-04 15:15 | NUR ---
BOTH NARES SWABBED FOR COVID-19 WITHOUT COMPLICATION. SAMPLE TAKEN TO LAB.
--- NOTE | 2021-10-04 15:21 | NUR ---
tYLENOL 1000MG PO ADMIN PER SCHEDULED ORDER. PATIENT REPORTS 4/10 LEFT ARM PAIN. CMS INTACT TO LEFT ARM. DRESSING TO LEFT ARM REMAINS CDI, SLING IN PLACE. PATIENT HAS NO DISTRESS OR NEEDS. PERSONAL SUPPLIES AND CALL LIGHT WITHIN REACH.
--- NOTE | 2021-10-04 17:24 | NUR ---
Dinner order placed at this time. Patient awake in bed watching tv, no distress. Patient reports pain to left arm is 2/10 and tolerable. No current needs. Personal supplies and call light within reach.
--- NOTE | 2021-10-04 19:15 | NUR ---
REPORT RECEIVED FROM PHILL NAVA. pt RESTING IN BED ASLEEP. AWAKENS TO RNS ENTERING ROOM. LEFT ARM IN SLING. HOB ELEVATED ORDERED. CALL LIGHT IN REACH.
--- NOTE | 2021-10-04 20:25 | NUR ---
ASSISTED NAILING MACHINE OPERATOR AUTOMATIC HEMALATHA. CHANGED PULL UPS. PUT PATIENT TO BED. PATIENT REPOSITIONED. CHANGED BED LINEN BY NAILING MACHINE OPERATOR AUTOMATIC. CALL LIGHT WITHIN REACH. BED ALARM ON. SIDE TABLE IN REACH.
[2021-10-04] MEDS ORDERED: TIZANIDINE HCL4 M1 PO (20:39)
[2021-10-04] MEDS ORDERED: METOPROLOL TART25 MG PO (20:39)
[2021-10-04] MEDS ORDERED: ACETAMINOPHEN500 MG PO (20:39)
[2021-10-04] MEDS ORDERED: SERTRALINE HCL50 MG PO (20:39)
--- NOTE | 2021-10-04 20:42 | NUR ---
BED ALARM SOUNDING, PT SITTING UP EDGE BED "I NEED MY JUG". NOTED HE WAS "PEEING" PRIOR TO GETTIGN THE URINAL IN PLACE. ONCE DONE, ASSISTED WITH CANE TO CHAIR SO THE BED COULD BE CHANGED. VOIDED 100, AND MISSED A LARGE AMOUNT OF URINE IN ATTENDS/BED/GOWN/FLOOR. BACK TO BED WITH HARDWOOD FLOOR SANDER, FRESH WATER GIVEN. BED ALARM PLACED.
--- NOTE | 2021-10-04 22:00 | NUR ---
pt RESTING IN BED ASLEEP, AWAKENS TO VOICE. DISORIENTED TO BIRTHDATE, DATE, YEAR, EVENT. REORIENTATION PROVIDED. ASSESSMENT COMPLETE. CSM INTACT BUE. pt DENIES PAIN, GRIMACES WITH TURNING. SCHEDULED TYLENOL ADMINISTERED. REPOSITIONED IN BED WITH TWO RN ASSIST, FLOATING WITH PILLOWS UNDER HIPS. HOB ELEVATED TO 45 DEGREES. CALL LIGHT IN REACH.
--- NOTE | 2021-10-04 22:32 | NUR ---
PT USED CALL LIGHT. NEEDED THE URINAL. ASSISTED WHILE IN BED, THE URINAL. COVERED UP, BED ALARM PLACED. PT DENIED NEEDS, EXCEPT TO ASK FOR THE LIGHT TO BE OFF.
--- NOTE | 2021-10-05 00:21 | NUR ---
CHECKED ON pt. pt ATTEMPTING TO GET OUT OF BED. ASSISTED TO SIDE OF BED TO STAND AND VOID IN URINAL. 2PA WITH CANE. pt BACK IN BED, PILLOW UNDER LEFT HIP, REPOSITIONED IN BED. LEGS ELEVATED. BED ALARM ON. DRINK OF WATER PROVIDED. HOB ELEVATED.
--- NOTE | 2021-10-05 02:33 | NUR ---
pt UP TO BSC WITH PHILL MASON AND CONNER ALEJO. pt NOW BACK IN BED. ASSESSMENT COMPLETE. pt DENIES PAIN. CSM INTACT. HOB TO 45 DEGREES PER ORDERS. pt REPOSITIONED WITH LEGS ELEVATED PILLOW UNDER LEFT SIDE. CALL LIGHT AND URINAL IN REACH PER REQUEST OF pt. BED ALARM ON.
--- NOTE | 2021-10-05 06:12 | NUR ---
pt WITH LEGS OUT OF BED, JUST USED URINAL IN BED, ATTEMPTING TO REPOSITION SELF WITH TRAPEZE. ASSISTED TO RESPOSITION IN BED WITH TWO RN ASSIST. HOB ELEVATED TO 45 DEGREES. BP 190/85, PRN MEDICATION ADMINISTERED. BED ALARM ON. CALL LIGHT IN REACH.
--- NOTE | 2021-10-05 07:50 | NUR ---
Notified by Dr. Gonzales she is completing orders for [facility] and dc summary. Picked up orders and rx, faxed all with dc summary to [facility]. She called to confirm she received orders and pt can admit anytime. Notified I set transport per van for 944.
--- NOTE | 2021-10-05 08:09 | NUR ---
IN TO CHECK ON PT. ASSISTED PT TO CHAIR. IV REMOVBED BY PHILL NAVA. PAT DENIES PAIN. ASSESSMENT COMPLETED. AM MEDS GIVEN PER ORDER. NO OTHER CONCERNS OR REQAUSETS AT THIS TIME.
--- NOTE | 2021-10-05 08:46 | NUR ---
PATIENT UP TO BATHROOM AND BACK TO CHAIR, 1PA CANE. AM CARE AND ORAL CARE DONE AT SINK. CALL LIGHT IN REACH. NO FURTHER NEEDS AT THIS TIME.
--- NOTE | 2021-10-05 09:25 | NUR ---
PT AWAKE IN ROOM. PT AMBULATED TO BATHROOM, HAD SHOWER WITH 2PA. JENNIFER CARE DONE, ORAL CARE DONE INDEPENDENTLY. PT NOW IN WHEELCHAIR READY FOR DC, EATING BREAKFAST WITH IN ROOM. CALL LIGHT WITHIN REACH NO FURTHER NEEDS AT THIS TIME.
--- NOTE | 2021-10-05 09:33 | NUR ---
CALLED SARAH SPEARS GAVE REPORT TO [facility]. ALL QUESTIONS ANSWERED AT THIS TIME.
--- NOTE | 2021-10-05 09:52 | NUR ---
PT PRESENT AT DISCHARGE WITH PT. PT LEAVING FACILITY WITH ALL BELONGINGS. PT ESCORTED BY CONNER WRAY VIA WHEELCHAIR. PT GIVEN PT PACKET FOR [facility]AC[facility] STAFF.
--- NOTE | 2021-10-05 11:32 | NUR ---
CONNECTED WITH PT'S BEFORE ENTERING . SHE ADMITTED SHE IS VERY TIRED, THANKFUL FOR CARE PT HAS RECEIVED AT [facility] AND APPRECIATES HELP IN SECURING FURTHER CARE AT [facility]. GAVE ENCOURAGEMENT, WILL FOLLOW
== END 2021-10-05 09:52 | disposition home or self-care (01) | DRG 698 ==
LOC: ED 06:48 → MS 13:05
PROVIDERS: ADMIT Student in an Organized Health Care Education/Training Program; ATTEND Student in an Organized Health Care Education/Training Program
PROC: 30233N1 Transfusion of Nonautologous Red Blood Cells into Peripheral Vein, Percutaneous Approach (ICD-10-PCS; principal; 2021-09-30)
DX: T86.19 Other complication of kidney transplant (principal); G93.41 Metabolic encephalopathy; N17.9 Acute kidney failure, unspecified; C64.2 Malignant neoplasm of left kidney, except renal pelvis; C64.1 Malignant neoplasm of right kidney, except renal pelvis; M84.422A Pathological fracture, left humerus, initial encounter for fracture; Z66 Do not resuscitate; I10 Essential (primary) hypertension; D63.1 Anemia in chronic kidney disease; I25.10 Atherosclerotic heart disease of native coronary artery without angina pectoris; N40.0 Benign prostatic hyperplasia without lower urinary tract symptoms; G89.29 Other chronic pain; F03.90 Unspecified dementia, unspecified severity, without behavioral disturbance, psychotic disturbance, mood disturbance, and anxiety; Z88.8 Allergy status to other drugs, medicaments and biological substances; I25.2 Old myocardial infarction; E78.00 Pure hypercholesterolemia, unspecified; Z87.891 Personal history of nicotine dependence; Z95.5 Presence of coronary angioplasty implant and graft; Z98.890 Other specified postprocedural states; Z79.899 Other long term (current) drug therapy; Z79.82 Long term (current) use of aspirin
CPT/HCPCS: 36430; 51701; 71045; 73060; 80048; 80053; 81001; 82803; 83735; 85025; 86850; 86900; 86901; 86922; 94760; 97116; 97140; 97163; 97167; 97530; 97535; 99285-25; C9803; J1644; J7121; P9016; U0003

== ENCOUNTER 2021-10-06 02:44 | Emergency (ER) | payer OTHER, MEDICARE, BC ==
[~2021-10-06] VITALS: Ht 175.3 cm; Wt 70.8 kg
[~2021-10-06 02:44] MED LIST changes: +ACETAMINOPHEN500 MG PO; +FENTANYL1 EAC4 TD; +GABAPENTIN300 MG PO; +METOPROLOL TART25 MG PO; +TRIAMTERENE-HC1 EAC1 PO
--- OUTSIDE RECORDS SUMMARY | 2021-10-06 02:46 | XMS ---
PreManage Notification: VINICIUS EDUARDO Security Dog Warden Events No recent Security Events currently on file CRITERIA MET - 6 ED Visits in 6 Months - [facility] - 2 Visits in 30 Days CARE PROVIDERS TREASURE [facility] 07/15/2021-Current PHONE: [phone] Vivian has no Care Guidelines for this patient. Love VISIT COUNT (12 MO.) 1 [facility] [address] TOTAL 6 NOTE: Visits indicate total known visits. ED/UCC VISIT TRACKING (12 MO.) 10/06/2021 02:44 [facility] [place] TYPE: Emergency COMPLAINT: - FALL,SHOULDER PAIN 09/30/2021 06:49 [facility] [place] TYPE: Emergency COMPLAINT: - FALL, WEAKNESS 08/29/2021 11:10 [facility] [place] TYPE: Emergency COMPLAINT: - BACK PAIN DIAGNOSES: - LOW BACK PAIN, UNSPECIFIED - Personal history of nicotine dependence - Allergy status to other drugs, medicaments and biological substances - Other alf (current) drug therapy - Sprain of ligaments of lumbar spine, initial encounter - Unspecified fall, initial encounter - Essential (primary) hypertension - Old myocardial infarction - long-term (current) use of aspirin - Pure hypercholesterolemia, unspecified [facility] DIAGNOSES: 45241. F R HIP PAIN . Fracture of unspecified part of neck of right femur, initial encounter for closed fracture 05/02/2021 16:08 [facility] [place] TYPE: Emergency COMPLAINT: - FEVER DIAGNOSES: - Anemia, unspecified - Old myocardial infarction - Allergy status to other drugs, medicaments and biological substances - Atelectasis - Other exterminator (current) drug therapy - Essential (primary) hypertension - Personal history of nicotine dependence - long-term (current) use of aspirin - Pure hypercholesterolemia, unspecified - Fever, unspecified 04/30/2021 18:35 [facility] TYPE: Emergency DIAGNOSES: 92389. Kidney issue . Minor contusion of unspecified kidney, initial encounter INPATIENT VISIT TRACKING (12 MO.) 09/30/2021 13:[address] [facility] [place] TYPE: Medical Surgical COMPLAINT: - CARINA 07[facility]15[facility]2021 09[facility] DIAGNOSES: 55042. Fracture of unspecified part of neck of right femur, initial encounter for closed fracture 06/22/2021 10:43 [facility] TYPE: Urology DIAGNOSES: 78112. Chronic kidney disease, unspecified [email or web address]
== END 2021-10-06 05:35 | disposition home or self-care (01) ==
LOC: ED 02:44
DX: S09.90XA Unspecified injury of head, initial encounter (principal); M84.422A Pathological fracture, left humerus, initial encounter for fracture; I25.2 Old myocardial infarction; I10 Essential (primary) hypertension; E78.00 Pure hypercholesterolemia, unspecified; Z85.528 Personal history of other malignant neoplasm of kidney; Z85.830 Personal history of malignant neoplasm of bone; Z87.891 Personal history of nicotine dependence; Z95.5 Presence of coronary angioplasty implant and graft; Z79.899 Other long term (current) drug therapy; Z88.8 Allergy status to other drugs, medicaments and biological substances; Z79.82 Long term (current) use of aspirin; W06.XXXA Fall from bed, initial encounter
CPT/HCPCS: 70450; 72125; 73060; 99284-25

== ENCOUNTER 2021-12-04 02:07 | Emergency (ER) | payer MEDICARE, BC ==
[~2021-12-04] VITALS: Ht 175.3 cm; Wt 70.6 kg
--- OUTSIDE RECORDS SUMMARY | 2021-12-04 02:08 | XMS ---
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 E.DMitchell VISIT COUNT (12 MO.) 1 [facility] [place] [address] [place] [id number] KATHARINE Sanchez TOTAL 7 NOTE: Visits indicate total known visits. ED/UCC VISIT TRACKING (12 MO.) 12/04/2021 02:07 [facility] [place] TYPE: Emergency COMPLAINT: - L SHOULDER PAIN 10/06/2021 02:44 [facility] [place] TYPE: Emergency COMPLAINT: - FALL,SHOULDER PAIN DIAGNOSES: - Personal history of malignant neoplasm of bone - Personal history of other malignant neoplasm of kidney - Pure hypercholesterolemia, unspecified - Other fdc (current) drug therapy - halfway (current) use of aspirin - Essential (primary) hypertension - Pathological fracture, left humerus, initial encounter for fracture - Old myocardial infarction - Fall from bed, initial encounter - Unspecified injury of head, initial encounter - Personal history of nicotine dependence - Allergy status to other drugs, medicaments and biological substances - Presence of coronary angioplasty implant and graft 09/30/2021 06:49 [facility] [place] TYPE: Emergency COMPLAINT: - FALL, WEAKNESS 08/29/2021 11:10 [facility] [place] TYPE: Emergency COMPLAINT: - BACK PAIN DIAGNOSES: - LOW BACK PAIN, UNSPECIFIED - Personal history of nicotine dependence - Allergy status to other drugs, medicaments and biological substances - Other fdc (current) drug therapy - Sprain of ligaments of lumbar spine, initial encounter - Unspecified fall, initial encounter - Essential (primary) hypertension - Old myocardial infarction - watermelon harvesting supervisor (current) use of aspirin - Pure hypercholesterolemia, unspecified [facility] DIAGNOSES: [id number]. GLF R HIP PAIN [id number]. Fracture of unspecified part of neck of right femur, initial encounter for closed fracture 05/02/2021 16:08 [facility] [place] TYPE: Emergency COMPLAINT: - FEVER DIAGNOSES: - Anemia, unspecified - Old myocardial infarction - Allergy status to other drugs, medicaments and biological substances - Atelectasis - Other bed bug exterminator (current) drug therapy - Essential (primary) hypertension - Personal history of nicotine dependence - halfway (current) use of aspirin - Pure hypercholesterolemia, unspecified - Fever, unspecified 04/30/2021 18:35 [facility] TYPE: Emergency DIAGNOSES: 19945. Kidney issue 94931. 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 - Acquired absence of kidney - Chronic kidney disease, stage 3 unspecified - Chronic kidney disease, stage 3b 09/30/2021 13:05 [facility] [place] TYPE: Medical Surgical COMPLAINT: - CARINA DIAGNOSES: - Acute kidney failure, unspecified - Pathological fracture, left humerus, initial encounter for fracture - Do not resuscitate - Presence of coronary angioplasty implant and graft - Other complication of kidney transplant - Other bed bug exterminator (current) drug therapy - Essential (primary) hypertension - Other complication of kidney transplant - Malignant neoplasm of left kidney, except renal pelvis - Anemia in chronic kidney disease - Unspecified dementia without behavioral disturbance - Personal history of nicotine dependence - Old myocardial infarction - Metabolic encephalopathy - Pure hypercholesterolemia, unspecified - halfway (current) use of aspirin - Metabolic encephalopathy - Other specified postprocedural states - Malignant neoplasm of right kidney, except renal pelvis - Essential (primary) hypertension - Anemia in chronic kidney disease - 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 Fracture of unspecified part of neck of right femur, initial encounter for closed fracture 06/22/2021 10:43 [facility] TYPE: Urology DIAGNOSES: 62751. Chronic kidney disease, unspecified [email or web address]
[2021-12-04] MEDS ORDERED: OXYCODONE HCL5 MG PO (02:27)
[2021-12-04] MEDS ORDERED: GABAPENTIN300 MG PO (02:28)
[2021-12-04] MEDS ORDERED: PERCOCET 5-3251 EACH PO (03:10)
[2021-12-06] MEDS ORDERED: METOPROLOL TART25 MG PO (13:16)
[2021-12-06] MEDS ORDERED: AMLODIPINE BESY10 MG PO (13:16)
[2021-12-06] MEDS ORDERED: PERCOCET 5-3251 EACH PO (13:16)
[2021-12-06] MEDS ORDERED: FLOMAX0.4 MG PO (13:16)
[2021-12-06] MEDS ORDERED: GABAPENTIN300 MG PO (13:17)
[2021-12-06] MEDS ORDERED: ACETAMINOPHEN500 MG PO (13:17)
[2021-12-06] MEDS ORDERED: SERTRALINE HCL50 MG PO (13:17)
== END 2021-12-04 05:05 | disposition home or self-care (01) ==
LOC: ED 02:07
DX: M84.42 Pathological fracture, humerus (principal); I10 Essential (primary) hypertension; I25.2 Old myocardial infarction; E78.00 Pure hypercholesterolemia, unspecified; Z85.528 Personal history of other malignant neoplasm of kidney; Z87.891 Personal history of nicotine dependence; Z88.8 Allergy status to other drugs, medicaments and biological substances; Z79.899 Other long term (current) drug therapy; Z79.891 Long term (current) use of opiate analgesic; Z79.82 Long term (current) use of aspirin
CPT/HCPCS: 73030; 99283-25